=== PATIENT | male | born 1975 | race Caucasian/White ===

== ENCOUNTER 2018-11-24 16:55 | Inpatient (IN) | payer MEDICAID, OTHER ==
[~2018-11-24] VITALS: Ht 172.7 cm; Wt 74.9 kg
[~2018-11-24 16:55] MED LIST: HYDR-3150 PO; METF500T PO; TAMS-11 PO
--- NOTE | 2018-11-24 17:10 | NUR ---
FSBS IN TRIAGE READS "HI". SUMI GUZMÁN NOTIFIED. PT TO ROOM 39.
--- NOTE | 2018-11-24 17:10 | NUR ---
PT TO ROOM FROM LOBBY
--- NOTE | 2018-11-24 17:21 | NUR ---
43 Y/O MALE PRESENTS TO ED WITH C/O HIGH BLOOD SUGARS. PER SON "HE IS DIABETIC AND HAS HIGH BLOOD SUGARS. WE DON'T CHECK HIS BLOOD SUGAR AT HOME AND HE DOESN'T TAKE MEDICATIONS. HE'S BEEN FEELING SICK SINCE TUESDAY OR TUESDAY." PT BEING TAKEN TO IMAGING. Addendum: 11/24/18 at 1747 by JANAK PER SON "HE IS ALSO HERE BECAUSE HIS STUMP HURTS. HE HAD IT CUT OFF IN 2016"
[2018-11-24 17:32] LABS: BASOPHILS # (AUTO) 0.01 x10^3/uL (0-0.1); BASOPHILS % (AUTO) 0 % (0-1); EOSINOPHILS # (AUTO) 0.15 x10^3/uL (0-0.4); EOSINOPHILS % (AUTO) 1 % (1-7); LYMPHOCYTES # (AUTO) 1.32 x10^3/uL (1-3.4); LYMPHOCYTES % (AUTO) 12 % (22-44); MD NO; MEAN CORPUSCULAR HEMOGLOBIN 30.6 pg (27.5-34.5); MEAN CORPUSCULAR HGB CONC 33.8 g/dL (33.2-36.2); MEAN CORPUSCULAR VOLUME 90.7 fL (81-97); MEAN PLATELET VOLUME 9.3 fL (7.4-10.4); MONOCYTES # (AUTO) 0.74 x10^3/uL (0.2-0.8); MONOCYTES % (AUTO) 7 % (2-9); NEUTROPHILS # (AUTO) 8.47 x10^3/uL (1.8-6.8); NEUTROPHILS % (AUTO) 79 % (42-75); PLATELET COUNT 233 x10^3/uL (130-400); RED BLOOD COUNT 4.53 x10^6/uL (4.38-5.82)
--- NOTE | 2018-11-24 17:33 | NUR ---
PT BACK FROM IMAGING.
[2018-11-24 17:42] LABS: ALBUMIN 2.7 g/dL (3.4-5.0); ANION GAP 8 mmol/L (5-15); CALCIUM 8.9 mg/dL (8.5-10.1); CHLORIDE 95 mmol/L (98-107)
[2018-11-24 17:44] LABS: CREATININE 1.35 mg/dL (0.7-1.3)
--- NOTE | 2018-11-24 17:45 | NUR ---
PT SON STATES PT DENIES F/C, N/V/D, TRAUMA, SYNCOPE, CP, SOB. PT DOES STATE HE HAS ABDOMINAL PAIN. NO C/O DYSURIA OR ANY COMPLICATIONS WITH URINATION.
[2018-11-24] MEDS ORDERED: MORPHINE SULFATE 4 MG/ML, 1ML ONE (17:55)
[2018-11-24] MEDS ORDERED: MORPHINE SULFATE 4 MG/ML, 1ML IVPush ONE (18:00)
[2018-11-24] MEDS ORDERED: SODIUM CHLORIDE FLUSH 10ML SYR IVF ONE (18:00)
[2018-11-24] MEDS ORDERED: SODIUM CHLORIDE 0.9% 1,000ML IVBOLUS ONE ×2 (18:00→19:00)
[2018-11-24 18:14] LABS: ACETONE, SERUM Small (20mg/dL) mg/dL (Negative)
--- NOTE | 2018-11-24 18:49 | NUR ---
BEDSIDE REPORT TO CHAS CONDE.
--- NOTE | 2018-11-24 19:10 | NUR ---
2ND LITER NS INITIATED AT THIS TIME. PT SLEEPING COMFORTABLY. RR EVEN AND UNLABORED. NADN. NO IMMEDIATE NEEDS FROM PT OR FAMILY. CALL LIGHT WITHIN REACH.
[2018-11-24] MEDS ORDERED: INSULIN REGULAR 100 UNITS/ML, 3ML VIAL ONE (19:56)
[2018-11-24] MEDS ORDERED: INSULIN REGULAR 100 UNITS/ML, 3ML VIAL SQ-INSULIN ONE (20:00)
--- NOTE | 2018-11-24 20:18 | NUR ---
ALL RESULTS BACK. PT UP FOR RECHECK.
[2018-11-24] MEDS ORDERED: PROPOFOL 10 MG/ML, 20ML ONE (20:38)
[2018-11-24] MEDS ORDERED: FENTANYL PF 100 MCG/2ML ONE (20:38)
[2018-11-24] MEDS: INSULIN LISPRO 100 UNITS/ML, PEN SQ-INSULIN SCH (21:00)
[2018-11-24] MEDS ORDERED: BISACODYL 10 MG SUPP PR PRN (21:00)
[2018-11-24] MEDS ORDERED: ONDANSETRON 2MG/ML, 2ML IVPush PRN (21:00)
[2018-11-24] MEDS ORDERED: ACETAMINOPHEN 325 MG TABLET PO PRN (21:00)
[2018-11-24] MEDS ORDERED: DOCUSATE 100 MG CAPSULE PO PRN (21:00)
[2018-11-24] MEDS ORDERED: POLYETHYLENE GLYCOL 17 GM PACKET PO PRN (21:00)
[2018-11-24] MEDS ORDERED: PROMETHAZINE 25 MG/ML, 1ML IM PRN (21:00)
[2018-11-24] MEDS ORDERED: ONDANSETRON ODT 4 MG PO PRN (21:00)
[2018-11-24] MEDS ORDERED: LABETALOL 5MG/ML, 20ML IVPush PRN (21:00)
--- NOTE | 2018-11-24 21:03 | NUR ---
TASK RN: PT RESTING IN MELISSA [place] NOTED. PT REPORTS IMPROVEMENT IN PAIN WITH MEDICATIONS; DENIES NEED FOR ADDITIONAL PAIN MEDICATIONS. BP/SPO2 MONITOR IN PLACE. AWAITING BED ASSIGNMENT FOR TRANSPORT
[2018-11-24] MEDS: SODIUM CHLORIDE 0.9% 1,000 ML IV SCH (21:46)
[2018-11-24 21:56] LABS: HEMOGLOBIN A1C 15.7 % (4.2-6.3)
[2018-11-24 21:57] LABS: FREE T4 (FREE THYROXINE) 1.17 ng/dL (0.76-1.46); PSA SCREEN 0.24 ng/mL (0.00-4.00); THYROID STIMULATING HORMONE 1.16 mIU/L (0.358-3.740)
[2018-11-24 22:34] VITALS: BP 143/90
[2018-11-24] MEDS: HEPARIN 5,000 UNITS/ML, 1ML SQ SCH (22:57)
[2018-11-24] MEDS: INSULIN GLARGINE 100 UNITS/ML, PEN SQ-INSULIN SCH (22:58)
[2018-11-25 01:35] VITALS: BP 97/66
[2018-11-25] MEDS: SODIUM CHLORIDE 0.9% 1,000 ML IV SCH ×2 (03:23→12:47)
[2018-11-25 05:11] LABS: CHLORIDE 107 mmol/L (98-107)
[2018-11-25 05:17] LABS: ALANINE AMINOTRANSFERASE 21 U/L (12-78); ALBUMIN 2.2 g/dL (3.4-5.0); ALKALINE PHOSPHATASE 114 U/L (45-117); ANION GAP 5 mmol/L (5-15); BILIRUBIN,TOTAL 0.7 mg/dL (0.2-1.0); CALCIUM 8.2 mg/dL (8.5-10.1); CHOL/HDL RATIO 5.2; CHOLESTEROL, TOTAL 152 mg/dL (140-239); HDL CHOL % 19 % (26-37); HDL CHOLESTEROL (DIRECT) 29 mg/dL (40-60); LDL CHOLESTEROL,CALCULATED 95 mg/dL (54-169); LDL/HDL RATIO 3.3 (0.5-3.0); TOTAL PROTEIN 6.3 g/dL (6.4-8.2); TRIGLYCERIDES 139 mg/dL (50-200); VLDL CHOLESTEROL 28 mg/dL (0-25)
[2018-11-25 06:40] LABS: BASOPHILS # (AUTO) 0.05 x10^3/uL (0-0.1); BASOPHILS % (AUTO) 0 % (0-1); EOSINOPHILS # (AUTO) 0.06 x10^3/uL (0-0.4); EOSINOPHILS % (AUTO) 1 % (1-7); LYMPHOCYTES % (AUTO) 19 % (22-44); MD SCAN; MEAN CORPUSCULAR HEMOGLOBIN 29.7 pg (27.5-34.5); MEAN CORPUSCULAR HGB CONC 33.1 g/dL (33.2-36.2); MEAN CORPUSCULAR VOLUME 89.7 fL (81-97); MEAN PLATELET VOLUME 9.6 fL (7.4-10.4); MONOCYTES # (AUTO) 1.19 x10^3/uL (0.2-0.8); MONOCYTES % (AUTO) 10 % (2-9); NEUTROPHILS # (AUTO) 8.29 x10^3/uL (1.8-6.8); NEUTROPHILS % (AUTO) 70 % (42-75); PLATELET COUNT 224 x10^3/uL (130-400); RED BLOOD COUNT 3.96 x10^6/uL (4.38-5.82)
[2018-11-25 07:23] VITALS: BP 106/65
[2018-11-25] MEDS: INSULIN LISPRO 100 UNITS/ML, PEN SQ-INSULIN SCH ×4 (07:50→19:58)
[2018-11-25] MEDS: HEPARIN 5,000 UNITS/ML, 1ML SQ SCH ×3 (07:50→23:00)
[2018-11-25] MEDS ORDERED: VANCOMYCIN PMX 1GM/200ML 200 ML IV ONE (10:00)
[2018-11-25] MEDS ORDERED: VANCOMYCIN PER PHARMACY MC PRN (10:00)
[2018-11-25] MEDS ORDERED: PHARMACOKINETIC CONSULTATION MC ONE (10:30)
[2018-11-25] MEDS ORDERED: PHARMACOKINETIC MONITORING MC PRN (10:30)
[2018-11-25] MEDS ORDERED: VANCOMYCIN 1,400 MG in SODIUM CHLORIDE 0.9% 250 ML IV SCH (11:00)
[2018-11-25] MEDS ORDERED: GADOBUTROL 7.5 MMOL/7.5 ML PFS ONE (12:26)
[2018-11-25 12:43] VITALS: BP 121/83
[2018-11-25] MEDS: PIPERACILLIN/TAZO/PMX 3.375GM 50 ML IV SCH ×2 (12:47→18:27)
[2018-11-25] MEDS: LACTOBACILLUS CHEW TABLET PO SCH ×2 (15:39→19:53)
[2018-11-25 18:45] VITALS: BP 94/63
[2018-11-25] MEDS: OXYcodone IR 5MG TABLET PO PRN (19:53)
[2018-11-25] MEDS: INSULIN GLARGINE 100 UNITS/ML, PEN SQ-INSULIN SCH (19:58)
[2018-11-26] MEDS: PIPERACILLIN/TAZO/PMX 3.375GM 50 ML IV SCH ×4 (00:52→20:52)
[2018-11-26 00:57] VITALS: BP 121/64
[2018-11-26] MEDS: VANCOMYCIN 1,400 MG in SODIUM CHLORIDE 0.9% 250 ML IV SCH ×2 (01:54→14:42)
[2018-11-26 07:22] VITALS: BP 94/62
[2018-11-26] MEDS: LACTOBACILLUS CHEW TABLET PO SCH ×3 (09:16→21:06)
[2018-11-26] MEDS: OXYcodone IR 5MG TABLET PO PRN (09:16)
[2018-11-26 09:17] LABS: HCT (SEDRATE) 31.4 % (39.2-51.8)
[2018-11-26] MEDS: INSULIN LISPRO 100 UNITS/ML, PEN SQ-INSULIN SCH ×4 (09:22→21:05)
[2018-11-26] MEDS: morphine SULFATE 10 MG/ML, 1ML IVPush PRN (12:00)
[2018-11-26 12:53] VITALS: BP 91/60
[2018-11-26 13:16] VITALS: BP 100/66
[2018-11-26 14:52] VITALS: BP 106/71
[2018-11-26] MEDS ORDERED: MORPHINE SULFATE 4 MG/ML, 1ML ONE (17:16)
[2018-11-26] MEDS ORDERED: morphine SULFATE 10 MG/ML, 1ML IVPush ONE (17:30)
[2018-11-26] MEDS ORDERED: FENTANYL PF 250 MCG/5ML ONE (17:37)
[2018-11-26] MEDS ORDERED: OXYcodone 5 MG/5 ML ORAL.SOL UDC PO PRN (18:00)
[2018-11-26] MEDS ORDERED: LABETALOL 5 MG/ML SYRINGE IV PRN (18:00)
[2018-11-26] MEDS ORDERED: ONDANSETRON 2MG/ML, 2ML IV PRN (18:00)
[2018-11-26] MEDS ORDERED: ACETAMINOPHEN 325 MG TABLET PO PRN (18:00)
[2018-11-26] MEDS ORDERED: PROMETHAZINE 25 MG/ML, 1ML IV PRN (18:00)
[2018-11-26] MEDS ORDERED: hydrALAzine 20 MG/ML, 1ML IV PRN (18:00)
[2018-11-26] MEDS ORDERED: ONDANSETRON 2MG/ML, 2ML ONE (18:44)
[2018-11-26] MEDS ORDERED: PROPOFOL 10 MG/ML, 20ML ONE (18:45)
[2018-11-26] MEDS ORDERED: METOCLOPRAMIDE 5 MG/ML, 2ML ONE (18:45)
[2018-11-26] MEDS ORDERED: FENTANYL PF 100 MCG/2ML ONE (19:32)
[2018-11-26] MEDS ORDERED: HYDROmorphone 1 MG/ML, 1ML AMP ONE (19:33)
[2018-11-26] MEDS: HYDROmorphone 2 MG/ML, 1ML IVPush PRN ×3 (19:37→20:05)
[2018-11-26] MEDS: FENTANYL PF 100 MCG/2ML IV PRN ×3 (19:44→19:56)
[2018-11-26 20:45] VITALS: BP 123/83
[2018-11-26] MEDS: INSULIN GLARGINE 100 UNITS/ML, PEN SQ-INSULIN SCH (21:06)
[2018-11-27 01:08] VITALS: BP 107/72
[2018-11-27] MEDS: VANCOMYCIN 1,400 MG in SODIUM CHLORIDE 0.9% 250 ML IV SCH (01:53)
[2018-11-27] MEDS: PIPERACILLIN/TAZO/PMX 3.375GM 50 ML IV SCH ×4 (03:23→22:48)
[2018-11-27 06:52] VITALS: BP 118/78
[2018-11-27] MEDS: LACTOBACILLUS CHEW TABLET PO SCH ×3 (09:49→20:19)
[2018-11-27] MEDS: INSULIN LISPRO 100 UNITS/ML, PEN SQ-INSULIN SCH ×4 (09:50→20:19)
[2018-11-27 12:27] VITALS: BP 126/84
[2018-11-27] MEDS ORDERED: PNEUMOC 13-VALENT VACC, 0.5 ML IM-VACC ONE (14:30)
[2018-11-27] MEDS ORDERED: DIPH,PERTUSS(ACELL),TET VAC/PF NC IM-VACC ONE (14:30)
[2018-11-27] MEDS: DAPTOMYCIN 300 MG in SODIUM CHLORIDE 0.9% 100 ML IV SCH (15:39)
[2018-11-27 19:20] VITALS: BP 124/86
[2018-11-27] MEDS: INSULIN GLARGINE 100 UNITS/ML, PEN SQ-INSULIN SCH (20:20)
[2018-11-27 22:09] LABS: CLOSTRIDIUM DIFFICILE ANTIGEN NEGATIVE; CLOSTRIDIUM DIFFICILE TOXIN NEGATIVE (Negative)
[2018-11-28 03:36] VITALS: BP 131/89
[2018-11-28] MEDS: PIPERACILLIN/TAZO/PMX 3.375GM 50 ML IV SCH ×4 (05:58→23:02)
[2018-11-28 06:52] VITALS: BP 115/70
[2018-11-28] MEDS: LACTOBACILLUS CHEW TABLET PO SCH ×3 (07:52→18:17)
[2018-11-28] MEDS: INSULIN LISPRO 100 UNITS/ML, PEN SQ-INSULIN SCH ×4 (07:53→21:25)
[2018-11-28 12:19] VITALS: BP 157/98
[2018-11-28] MEDS: morphine SULFATE 10 MG/ML, 1ML IVPush PRN (14:27)
[2018-11-28] MEDS: DAPTOMYCIN 300 MG in SODIUM CHLORIDE 0.9% 100 ML IV SCH (16:04)
[2018-11-28] MEDS: INSULIN GLARGINE 100 UNITS/ML, PEN SQ-INSULIN SCH (21:25)
[2018-11-28 21:54] VITALS: BP 142/89
[2018-11-29 01:19] VITALS: BP 133/90
[2018-11-29] MEDS: PIPERACILLIN/TAZO/PMX 3.375GM 50 ML IV SCH ×4 (04:34→23:02)
[2018-11-29 07:00] VITALS: BP 153/105
[2018-11-29] MEDS: INSULIN LISPRO 100 UNITS/ML, PEN SQ-INSULIN SCH ×4 (07:20→21:01)
[2018-11-29] MEDS: LACTOBACILLUS CHEW TABLET PO SCH ×3 (08:46→20:55)
[2018-11-29 14:32] VITALS: BP 181/126
[2018-11-29] MEDS: hydrALAzine 20 MG/ML, 1ML IVPush PRN (15:05)
[2018-11-29] MEDS: DAPTOMYCIN 300 MG in SODIUM CHLORIDE 0.9% 100 ML IV SCH (15:38)
[2018-11-29 18:34] VITALS: BP 112/77
[2018-11-29] MEDS: INSULIN GLARGINE 100 UNITS/ML, PEN SQ-INSULIN SCH (21:01)
[2018-11-30] VITALS (7 sets, daily range): BP systolic 127–188; BP diastolic 70–104
[2018-11-30] MEDS: PIPERACILLIN/TAZO/PMX 3.375GM 50 ML IV SCH ×2 (04:23→11:34)
[2018-11-30] MEDS: INSULIN LISPRO 100 UNITS/ML, PEN SQ-INSULIN SCH ×4 (07:00→19:36)
[2018-11-30] MEDS: LACTOBACILLUS CHEW TABLET PO SCH ×3 (08:32→19:42)
[2018-11-30] MEDS ORDERED: MIDAZOLAM 1 MG/ML, 2ML ONE (15:25)
[2018-11-30] MEDS ORDERED: FENTANYL PF 100 MCG/2ML ONE (15:25)
[2018-11-30] MEDS ORDERED: PROPOFOL 10 MG/ML, 20ML ONE (15:27)
[2018-11-30] MEDS ORDERED: LIDOCAINE-MPF 2% ,5ML ONE (15:27)
[2018-11-30] MEDS ORDERED: hydrALAzine 20 MG/ML, 1ML IV PRN (16:00)
[2018-11-30] MEDS ORDERED: FENTANYL PF 100 MCG/2ML IV PRN (16:00)
[2018-11-30] MEDS ORDERED: HALOPERIDOL 5 MG/ML IV PRN (16:00)
[2018-11-30] MEDS ORDERED: HYDROmorphone 2 MG/ML, 1ML IVPush PRN (16:00)
[2018-11-30] MEDS ORDERED: MEPERIDINE/PF 25MG/0.5ML IVPush PRN (16:00)
[2018-11-30] MEDS ORDERED: OXYcodone 5 MG/5 ML ORAL.SOL UDC PO PRN (16:00)
[2018-11-30] MEDS: PIPERACILLIN/TAZO/PMX 4.5GM 100 ML IV SCH (18:06)
[2018-11-30] MEDS: INSULIN GLARGINE 100 UNITS/ML, PEN SQ-INSULIN SCH (19:36)
[2018-11-30] MEDS: hydrALAzine 20 MG/ML, 1ML IVPush PRN (20:00)
[2018-11-30] MEDS ORDERED: LABETALOL 5MG/ML, 20ML IVPush PRN (22:30)
[2018-12-01] MEDS: PIPERACILLIN/TAZO/PMX 4.5GM 100 ML IV SCH ×3 (00:05→16:21)
[2018-12-01 01:29] VITALS: BP 148/93
[2018-12-01 06:43] VITALS: BP_SYST 160; BP_SYST 166; BP_DIAS 108
[2018-12-01 07:01] LABS: BASOPHILS # (AUTO) 0.03 x10^3/uL (0-0.1); BASOPHILS % (AUTO) 1 % (0-1); EOSINOPHILS # (AUTO) 0.37 x10^3/uL (0-0.4); EOSINOPHILS % (AUTO) 6 % (1-7); LYMPHOCYTES # (AUTO) 2.07 x10^3/uL (1-3.4); LYMPHOCYTES % (AUTO) 32 % (22-44); MD NO; MEAN CORPUSCULAR HEMOGLOBIN 29.4 pg (27.5-34.5); MEAN CORPUSCULAR HGB CONC 32.8 g/dL (33.2-36.2); MEAN CORPUSCULAR VOLUME 89.7 fL (81-97); MEAN PLATELET VOLUME 6.9 fL (7.4-10.4); MONOCYTES # (AUTO) 0.62 x10^3/uL (0.2-0.8); MONOCYTES % (AUTO) 10 % (2-9); NEUTROPHILS # (AUTO) 3.46 x10^3/uL (1.8-6.8); NEUTROPHILS % (AUTO) 53 % (42-75); PLATELET COUNT 506 x10^3/uL (130-400); RED BLOOD COUNT 3.88 x10^6/uL (4.38-5.82); RED CELL DISTRIBUTION WIDTH 14.5 % (9.4-14.8)
[2018-12-01 07:03] LABS: ANION GAP 6 mmol/L (5-15); CALCIUM 8.4 mg/dL (8.5-10.1); CHLORIDE 112 mmol/L (98-107); CREATININE 0.85 mg/dL (0.7-1.3)
[2018-12-01] MEDS: LABETALOL 5 MG/ML SYRINGE IVPush PRN (07:21)
[2018-12-01] MEDS ORDERED: MAGNESIUM SULFATE PMX 2GM/50ML 50 ML IV ONE (07:30)
[2018-12-01] MEDS: INSULIN LISPRO 100 UNITS/ML, PEN SQ-INSULIN SCH ×4 (07:36→21:36)
[2018-12-01] MEDS: LACTOBACILLUS CHEW TABLET PO SCH ×3 (07:37→21:24)
[2018-12-01 13:59] VITALS: BP 130/86
[2018-12-01 18:47] VITALS: BP 137/90
[2018-12-01] MEDS: INSULIN GLARGINE 100 UNITS/ML, PEN SQ-INSULIN SCH (21:36)
[2018-12-02] VITALS (8 sets, daily range): BP systolic 130–161; BP diastolic 84–104
[2018-12-02] MEDS: PIPERACILLIN/TAZO/PMX 4.5GM 100 ML IV SCH ×3 (00:33→16:22)
[2018-12-02 04:29] LABS: CHLORIDE 113 mmol/L (98-107)
[2018-12-02 04:30] LABS: ANION GAP 4 mmol/L (5-15); CALCIUM 8.4 mg/dL (8.5-10.1); CREATININE 1.15 mg/dL (0.7-1.3)
[2018-12-02] MEDS: INSULIN LISPRO 100 UNITS/ML, PEN SQ-INSULIN SCH ×4 (07:27→20:53)
[2018-12-02] MEDS: LACTOBACILLUS CHEW TABLET PO SCH ×3 (08:41→20:47)
[2018-12-02] MEDS: hydrALAzine 20 MG/ML, 1ML IVPush PRN (08:42)
[2018-12-02] MEDS: INSULIN GLARGINE 100 UNITS/ML, PEN SQ-INSULIN SCH ×2 (08:44→20:52)
[2018-12-02] MEDS ORDERED: INSULIN GLARGINE 100 UNITS/ML, PEN SQ-INSULIN SCH (09:00)
[2018-12-03 00:08] VITALS: BP 150/98
[2018-12-03] MEDS: PIPERACILLIN/TAZO/PMX 4.5GM 100 ML IV SCH ×3 (00:18→16:31)
[2018-12-03 06:09] VITALS: BP 156/94
[2018-12-03 06:41] VITALS: BP 152/104
[2018-12-03] MEDS: INSULIN LISPRO 100 UNITS/ML, PEN SQ-INSULIN SCH ×4 (07:30→21:25)
[2018-12-03] MEDS: LACTOBACILLUS CHEW TABLET PO SCH ×3 (07:33→21:26)
[2018-12-03] MEDS: INSULIN GLARGINE 100 UNITS/ML, PEN SQ-INSULIN SCH ×2 (07:34→21:26)
[2018-12-03 07:49] VITALS: BP 144/100
[2018-12-03] MEDS: LABETALOL 5 MG/ML SYRINGE IVPush PRN (08:50)
[2018-12-03] MEDS: hydrALAzine 20 MG/ML, 1ML IVPush PRN (10:01)
[2018-12-03 12:09] VITALS: BP 144/90
[2018-12-03 19:45] VITALS: BP 106/70
[2018-12-04] MEDS: PIPERACILLIN/TAZO/PMX 4.5GM 100 ML IV SCH ×4 (00:11→23:52)
[2018-12-04 01:02] VITALS: BP 106/65
[2018-12-04 04:40] LABS: BASOPHILS # (AUTO) 0.04 x10^3/uL (0-0.1); BASOPHILS % (AUTO) 1 % (0-1); EOSINOPHILS # (AUTO) 0.48 x10^3/uL (0-0.4); EOSINOPHILS % (AUTO) 6 % (1-7); LYMPHOCYTES # (AUTO) 2.99 x10^3/uL (1-3.4); LYMPHOCYTES % (AUTO) 38 % (22-44); MD NO; MEAN CORPUSCULAR HEMOGLOBIN 29.8 pg (27.5-34.5); MEAN CORPUSCULAR HGB CONC 32.9 g/dL (33.2-36.2); MEAN CORPUSCULAR VOLUME 90.4 fL (81-97); MONOCYTES # (AUTO) 0.51 x10^3/uL (0.2-0.8); MONOCYTES % (AUTO) 7 % (2-9); NEUTROPHILS % (AUTO) 49 % (42-75); PLATELET COUNT 551 x10^3/uL (130-400); RED BLOOD COUNT 3.92 x10^6/uL (4.38-5.82); RED CELL DISTRIBUTION WIDTH 14.7 % (9.4-14.8)
[2018-12-04 04:49] LABS: ALANINE AMINOTRANSFERASE 22 U/L (12-78); ANION GAP 5 mmol/L (5-15); C-REACTIVE PROTEIN, QUANT 0.69 mg/dL (0.02-0.49); CALCIUM 7.9 mg/dL (8.5-10.1); CHLORIDE 109 mmol/L (98-107); CREATININE 1.06 mg/dL (0.7-1.3)
[2018-12-04 04:51] LABS: ALKALINE PHOSPHATASE 123 U/L (45-117); BILIRUBIN,TOTAL 0.2 mg/dL (0.2-1.0); TOTAL PROTEIN 6.2 g/dL (6.4-8.2)
[2018-12-04 06:34] LABS: HCT (SEDRATE) 35.4 % (39.2-51.8)
[2018-12-04 06:58] VITALS: BP 155/93
[2018-12-04] MEDS: INSULIN LISPRO 100 UNITS/ML, PEN SQ-INSULIN SCH ×4 (07:30→21:00)
[2018-12-04] MEDS ORDERED: MAGNESIUM SULFATE PMX 2GM/50ML 50 ML IV ONE (07:30)
[2018-12-04] MEDS: LACTOBACILLUS CHEW TABLET PO SCH ×3 (08:21→22:19)
[2018-12-04] MEDS: INSULIN GLARGINE 100 UNITS/ML, PEN SQ-INSULIN SCH ×2 (08:21→22:19)
[2018-12-04 13:18] VITALS: BP 112/75
[2018-12-04 19:31] VITALS: BP 120/80
[2018-12-05 03:09] VITALS: BP 141/78
[2018-12-05 06:56] VITALS: BP 130/87
[2018-12-05] MEDS: LACTOBACILLUS CHEW TABLET PO SCH ×3 (09:10→20:08)
[2018-12-05] MEDS: PIPERACILLIN/TAZO/PMX 4.5GM 100 ML IV SCH ×3 (09:11→23:25)
[2018-12-05] MEDS: INSULIN LISPRO 100 UNITS/ML, PEN SQ-INSULIN SCH ×4 (09:11→20:10)
[2018-12-05] MEDS: INSULIN GLARGINE 100 UNITS/ML, PEN SQ-INSULIN SCH ×2 (09:12→20:21)
[2018-12-05 12:21] VITALS: BP 150/97
[2018-12-05 19:00] VITALS: BP 117/80
[2018-12-06 00:17] VITALS: BP 161/102
[2018-12-06 01:32] VITALS: BP 128/89
[2018-12-06 07:07] VITALS: BP 126/86
[2018-12-06] MEDS: LACTOBACILLUS CHEW TABLET PO SCH ×3 (07:52→20:09)
[2018-12-06] MEDS: PIPERACILLIN/TAZO/PMX 4.5GM 100 ML IV SCH ×2 (07:52→16:24)
[2018-12-06] MEDS: INSULIN LISPRO 100 UNITS/ML, PEN SQ-INSULIN SCH ×4 (07:56→20:13)
[2018-12-06] MEDS: INSULIN GLARGINE 100 UNITS/ML, PEN SQ-INSULIN SCH ×2 (07:59→20:14)
[2018-12-06 12:59] VITALS: BP 120/82
[2018-12-06 18:57] VITALS: BP 150/102
[2018-12-06] MEDS: hydrALAzine 20 MG/ML, 1ML IVPush PRN (20:09)
[2018-12-07] VITALS: BP 128/83
[2018-12-07] MEDS: PIPERACILLIN/TAZO/PMX 4.5GM 100 ML IV SCH ×4 (00:07→23:26)
[2018-12-07 06:39] VITALS: BP 113/78
[2018-12-07] MEDS: LACTOBACILLUS CHEW TABLET PO SCH ×3 (08:23→19:26)
[2018-12-07] MEDS: INSULIN GLARGINE 100 UNITS/ML, PEN SQ-INSULIN SCH ×2 (08:24→19:27)
[2018-12-07] MEDS: INSULIN LISPRO 100 UNITS/ML, PEN SQ-INSULIN SCH ×4 (10:25→19:27)
[2018-12-07 13:50] VITALS: BP 93/61
[2018-12-07 18:39] VITALS: BP 90/57
[2018-12-08 01:19] VITALS: BP 127/86
[2018-12-08 06:55] VITALS: BP 125/85
[2018-12-08] MEDS: LACTOBACILLUS CHEW TABLET PO SCH ×3 (07:49→19:32)
[2018-12-08] MEDS: INSULIN LISPRO 100 UNITS/ML, PEN SQ-INSULIN SCH ×4 (07:50→19:32)
[2018-12-08] MEDS: PIPERACILLIN/TAZO/PMX 4.5GM 100 ML IV SCH ×3 (07:50→23:41)
[2018-12-08] MEDS: INSULIN GLARGINE 100 UNITS/ML, PEN SQ-INSULIN SCH ×2 (09:24→19:32)
[2018-12-08 14:13] VITALS: BP 130/92
[2018-12-08 18:33] VITALS: BP 109/86
[2018-12-09 01:38] VITALS: BP 119/84
[2018-12-09] MEDS: INSULIN LISPRO 100 UNITS/ML, PEN SQ-INSULIN SCH ×4 (07:00→20:44)
[2018-12-09 07:15] VITALS: BP 129/83
[2018-12-09] MEDS: INSULIN GLARGINE 100 UNITS/ML, PEN SQ-INSULIN SCH ×2 (08:19→20:43)
[2018-12-09] MEDS: LACTOBACILLUS CHEW TABLET PO SCH ×3 (08:19→20:43)
[2018-12-09] MEDS: PIPERACILLIN/TAZO/PMX 4.5GM 100 ML IV SCH ×3 (08:19→23:40)
[2018-12-09 13:25] VITALS: BP 109/76
[2018-12-09 19:27] VITALS: BP 120/83
[2018-12-10 00:19] VITALS: BP 111/77
[2018-12-10 07:20] VITALS: BP 120/82
[2018-12-10] MEDS: LACTOBACILLUS CHEW TABLET PO SCH ×3 (07:45→22:02)
[2018-12-10] MEDS: INSULIN GLARGINE 100 UNITS/ML, PEN SQ-INSULIN SCH ×2 (07:45→22:03)
[2018-12-10] MEDS: PIPERACILLIN/TAZO/PMX 4.5GM 100 ML IV SCH ×2 (07:45→16:22)
[2018-12-10] MEDS: INSULIN LISPRO 100 UNITS/ML, PEN SQ-INSULIN SCH ×4 (07:46→22:03)
[2018-12-10 13:21] VITALS: BP 117/78
[2018-12-10 19:47] VITALS: BP 106/72
[2018-12-11 00:22] VITALS: BP 125/86
[2018-12-11] MEDS: PIPERACILLIN/TAZO/PMX 4.5GM 100 ML IV SCH ×3 (01:00→16:53)
[2018-12-11 04:51] LABS: BASOPHILS # (AUTO) 0.09 x10^3/uL (0-0.1); BASOPHILS % (AUTO) 1 % (0-1); EOSINOPHILS # (AUTO) 0.44 x10^3/uL (0-0.4); EOSINOPHILS % (AUTO) 7 % (1-7); HCT (SEDRATE) 37.4 % (39.2-51.8); LYMPHOCYTES % (AUTO) 50 % (22-44); MD NO; MEAN CORPUSCULAR HEMOGLOBIN 30.5 pg (27.5-34.5); MEAN CORPUSCULAR HGB CONC 33.3 g/dL (33.2-36.2); MEAN CORPUSCULAR VOLUME 91.6 fL (81-97); MEAN PLATELET VOLUME 7.7 fL (7.4-10.4); MONOCYTES # (AUTO) 0.32 x10^3/uL (0.2-0.8); MONOCYTES % (AUTO) 5 % (2-9); NEUTROPHILS % (AUTO) 38 % (42-75); PLATELET COUNT 430 x10^3/uL (130-400); RED BLOOD COUNT 4.11 x10^6/uL (4.38-5.82); RED CELL DISTRIBUTION WIDTH 15.1 % (9.4-14.8)
[2018-12-11 05:03] LABS: CHLORIDE 113 mmol/L (98-107)
[2018-12-11 05:11] LABS: ALANINE AMINOTRANSFERASE 50 U/L (12-78); ALBUMIN 2.7 g/dL (3.4-5.0); ALKALINE PHOSPHATASE 121 U/L (45-117); ANION GAP 4 mmol/L (5-15); BILIRUBIN,TOTAL 0.4 mg/dL (0.2-1.0); C-REACTIVE PROTEIN, QUANT 0.16 mg/dL (0.02-0.49); CALCIUM 8.8 mg/dL (8.5-10.1); TOTAL PROTEIN 7.5 g/dL (6.4-8.2)
[2018-12-11 07:02] VITALS: BP 112/80
[2018-12-11] MEDS: INSULIN LISPRO 100 UNITS/ML, PEN SQ-INSULIN SCH ×4 (07:06→21:36)
[2018-12-11] MEDS: LACTOBACILLUS CHEW TABLET PO SCH ×3 (08:52→21:35)
[2018-12-11] MEDS: INSULIN GLARGINE 100 UNITS/ML, PEN SQ-INSULIN SCH ×2 (08:53→21:36)
[2018-12-11] MEDS ORDERED: SODIUM CHLORIDE 0.9% 1,000 ML IV SCH (10:00)
[2018-12-11] MEDS ORDERED: SODIUM CHLORIDE 0.45% 1,000 ML IV SCH (10:00)
[2018-12-11 13:52] VITALS: BP 124/84
[2018-12-11 19:18] VITALS: BP 99/70
[2018-12-12] MEDS: PIPERACILLIN/TAZO/PMX 4.5GM 100 ML IV SCH ×3 (00:13→16:53)
[2018-12-12 04:37] LABS: ALBUMIN 2.6 g/dL (3.4-5.0); ANION GAP 4 mmol/L (5-15); CALCIUM 8.3 mg/dL (8.5-10.1); CHLORIDE 113 mmol/L (98-107); CREATININE 1.19 mg/dL (0.7-1.3)
[2018-12-12 04:52] VITALS: BP 110/76
[2018-12-12 06:48] VITALS: BP 115/80
[2018-12-12] MEDS: INSULIN LISPRO 100 UNITS/ML, PEN SQ-INSULIN SCH ×4 (07:07→20:20)
[2018-12-12] MEDS: LACTOBACILLUS CHEW TABLET PO SCH ×3 (08:50→20:27)
[2018-12-12] MEDS: INSULIN GLARGINE 100 UNITS/ML, PEN SQ-INSULIN SCH ×2 (08:50→20:20)
[2018-12-12 13:07] VITALS: BP 112/76
[2018-12-12 19:53] VITALS: BP 127/88
[2018-12-13] MEDS: PIPERACILLIN/TAZO/PMX 4.5GM 100 ML IV SCH ×3 (00:17→17:16)
[2018-12-13 00:41] VITALS: BP 97/62
[2018-12-13 06:30] VITALS: BP 111/77
[2018-12-13] MEDS: INSULIN LISPRO 100 UNITS/ML, PEN SQ-INSULIN SCH ×4 (07:24→20:53)
[2018-12-13] MEDS: LACTOBACILLUS CHEW TABLET PO SCH ×3 (08:32→20:52)
[2018-12-13] MEDS: INSULIN GLARGINE 100 UNITS/ML, PEN SQ-INSULIN SCH ×2 (08:32→20:53)
[2018-12-13 14:02] VITALS: BP 113/80
[2018-12-13 19:12] VITALS: BP 106/79
[2018-12-14] MEDS: PIPERACILLIN/TAZO/PMX 4.5GM 100 ML IV SCH ×3 (00:07→16:35)
[2018-12-14 00:47] VITALS: BP 119/80
[2018-12-14 07:29] VITALS: BP 130/86
[2018-12-14] MEDS: LACTOBACILLUS CHEW TABLET PO SCH ×3 (07:56→19:44)
[2018-12-14] MEDS: INSULIN GLARGINE 100 UNITS/ML, PEN SQ-INSULIN SCH ×2 (07:57→19:45)
[2018-12-14] MEDS: INSULIN LISPRO 100 UNITS/ML, PEN SQ-INSULIN SCH ×4 (07:57→19:41)
[2018-12-14] MEDS: TAMSULOSIN 0.4 MG CAP.ER.24H PO SCH (11:55)
[2018-12-14 11:56] VITALS: BP 119/85
[2018-12-14 19:18] VITALS: BP 106/72
[2018-12-15] MEDS: PIPERACILLIN/TAZO/PMX 4.5GM 100 ML IV SCH ×4 (00:17→23:58)
[2018-12-15 00:54] VITALS: BP 124/84
[2018-12-15 06:55] VITALS: BP 146/96
[2018-12-15] MEDS: INSULIN GLARGINE 100 UNITS/ML, PEN SQ-INSULIN SCH ×2 (07:53→21:14)
[2018-12-15] MEDS: INSULIN LISPRO 100 UNITS/ML, PEN SQ-INSULIN SCH ×4 (07:54→21:15)
[2018-12-15] MEDS: LACTOBACILLUS CHEW TABLET PO SCH ×3 (07:54→21:15)
[2018-12-15] MEDS: TAMSULOSIN 0.4 MG CAP.ER.24H PO SCH (07:54)
[2018-12-15 13:07] VITALS: BP 129/85
[2018-12-15 18:53] VITALS: BP 112/77
[2018-12-16 01:00] VITALS: BP 115/76
[2018-12-16] MEDS: INSULIN LISPRO 100 UNITS/ML, PEN SQ-INSULIN SCH ×4 (07:00→21:59)
[2018-12-16 07:27] VITALS: BP 140/97
[2018-12-16] MEDS: PIPERACILLIN/TAZO/PMX 4.5GM 100 ML IV SCH ×2 (07:49→16:53)
[2018-12-16] MEDS: LACTOBACILLUS CHEW TABLET PO SCH ×3 (10:37→21:58)
[2018-12-16] MEDS: TAMSULOSIN 0.4 MG CAP.ER.24H PO SCH (10:37)
[2018-12-16] MEDS: INSULIN GLARGINE 100 UNITS/ML, PEN SQ-INSULIN SCH ×2 (10:48→21:58)
[2018-12-16 12:36] VITALS: BP 96/63
[2018-12-16 19:43] VITALS: BP 95/61
[2018-12-17] MEDS: PIPERACILLIN/TAZO/PMX 4.5GM 100 ML IV SCH ×3 (00:16→16:08)
[2018-12-17 01:41] VITALS: BP 125/65
[2018-12-17 06:59] VITALS: BP 125/88
[2018-12-17] MEDS: INSULIN LISPRO 100 UNITS/ML, PEN SQ-INSULIN SCH ×4 (07:51→21:54)
[2018-12-17] MEDS: LACTOBACILLUS CHEW TABLET PO SCH ×3 (09:33→21:21)
[2018-12-17] MEDS: TAMSULOSIN 0.4 MG CAP.ER.24H PO SCH (09:33)
[2018-12-17] MEDS: INSULIN GLARGINE 100 UNITS/ML, PEN SQ-INSULIN SCH ×2 (09:34→21:54)
[2018-12-17 12:37] VITALS: BP_SYST 68; BP_SYST 73; BP_DIAS 45; BP_DIAS 47
[2018-12-17 12:45] VITALS: BP 90/50
[2018-12-17 15:19] VITALS: BP 98/58
[2018-12-17] MEDS: metFORMIN 500 MG TABLET PO SCH (16:14)
[2018-12-17 19:03] VITALS: BP 117/82
[2018-12-18] MEDS: PIPERACILLIN/TAZO/PMX 4.5GM 100 ML IV SCH ×4 (00:04→23:37)
[2018-12-18 00:55] VITALS: BP 114/78
[2018-12-18 05:40] LABS: BASOPHILS # (AUTO) 0.06 x10^3/uL (0-0.1); BASOPHILS % (AUTO) 1 % (0-1); EOSINOPHILS # (AUTO) 0.48 x10^3/uL (0-0.4); EOSINOPHILS % (AUTO) 9 % (1-7); LYMPHOCYTES # (AUTO) 2.59 x10^3/uL (1-3.4); LYMPHOCYTES % (AUTO) 49 % (22-44); MD NO; MEAN CORPUSCULAR HEMOGLOBIN 30.2 pg (27.5-34.5); MEAN CORPUSCULAR VOLUME 91.4 fL (81-97); MEAN PLATELET VOLUME 8.9 fL (7.4-10.4); MONOCYTES # (AUTO) 0.31 x10^3/uL (0.2-0.8); MONOCYTES % (AUTO) 6 % (2-9); NEUTROPHILS # (AUTO) 1.81 x10^3/uL (1.8-6.8); NEUTROPHILS % (AUTO) 34 % (42-75); PLATELET COUNT 200 x10^3/uL (130-400); RED BLOOD COUNT 4.04 x10^6/uL (4.38-5.82); RED CELL DISTRIBUTION WIDTH 15.9 % (9.4-14.8)
[2018-12-18 05:46] LABS: CHLORIDE 119 mmol/L (98-107); HCT (SEDRATE) 36.9 % (39.2-51.8)
[2018-12-18 05:51] LABS: ALANINE AMINOTRANSFERASE 48 U/L (12-78); ALBUMIN 2.8 g/dL (3.4-5.0); ALKALINE PHOSPHATASE 106 U/L (45-117); ANION GAP 6 mmol/L (5-15); BILIRUBIN,TOTAL 0.3 mg/dL (0.2-1.0); C-REACTIVE PROTEIN, QUANT 0.07 mg/dL (0.02-0.49); CALCIUM 8.3 mg/dL (8.5-10.1); CREATININE 1.35 mg/dL (0.7-1.3); TOTAL PROTEIN 6.9 g/dL (6.4-8.2)
[2018-12-18] MEDS: INSULIN LISPRO 100 UNITS/ML, PEN SQ-INSULIN SCH ×4 (07:00→21:00)
[2018-12-18 07:12] VITALS: BP 150/96
[2018-12-18] MEDS: LACTOBACILLUS CHEW TABLET PO SCH ×3 (09:35→21:52)
[2018-12-18] MEDS: metFORMIN 500 MG TABLET PO SCH ×2 (09:35→16:26)
[2018-12-18] MEDS: TAMSULOSIN 0.4 MG CAP.ER.24H PO SCH (09:36)
[2018-12-18] MEDS: INSULIN GLARGINE 100 UNITS/ML, PEN SQ-INSULIN SCH ×2 (09:51→21:55)
[2018-12-18 12:44] VITALS: BP 145/63
[2018-12-18] MEDS ORDERED: INSU100I13 SQ-INSULIN (13:42)
[2018-12-18] MEDS ORDERED: METF500T PO (13:43)
[2018-12-18] MEDS ORDERED: TAMS-11 PO (13:43)
[2018-12-18 19:14] VITALS: BP 105/72
[2018-12-19 00:14] VITALS: BP 138/88
[2018-12-19 06:43] VITALS: BP 136/62
[2018-12-19] MEDS: INSULIN LISPRO 100 UNITS/ML, PEN SQ-INSULIN SCH ×3 (07:00→16:06)
[2018-12-19] MEDS: TAMSULOSIN 0.4 MG CAP.ER.24H PO SCH (07:39)
[2018-12-19] MEDS: metFORMIN 500 MG TABLET PO SCH ×2 (07:39→16:09)
[2018-12-19] MEDS: PIPERACILLIN/TAZO/PMX 4.5GM 100 ML IV SCH ×2 (07:39→16:06)
[2018-12-19] MEDS: LACTOBACILLUS CHEW TABLET PO SCH ×2 (07:39→16:06)
[2018-12-19] MEDS: INSULIN GLARGINE 100 UNITS/ML, PEN SQ-INSULIN SCH (10:18)
[2018-12-19 15:29] VITALS: BP 129/64
[2018-12-19] MEDS ORDERED: GLIP5TAB10 PO (15:48)
== END 2018-12-19 19:00 | disposition home or self-care (01) | DRG 500 ==
LOC: ED 18:38 → EDIP 20:44 → 3NW 21:29
PROVIDERS: ADMIT Internal Medicine; ATTEND Internal Medicine
PROC: 0JDP0ZZ Extraction of Left Lower Leg Subcutaneous Tissue and Fascia, Open Approach (ICD-10-PCS; 2018-11-26)
PROC: 0J9P0ZZ Drainage of Left Lower Leg Subcutaneous Tissue and Fascia, Open Approach (ICD-10-PCS; principal; 2018-11-26 16:30)
PROC: 0KDT0ZZ Extraction of Left Lower Leg Muscle, Open Approach (ICD-10-PCS; 2018-11-30)
DX: T87.44 Infection of amputation stump, left lower extremity (principal); A41.9 Sepsis, unspecified organism; N17.0 Acute kidney failure with tubular necrosis; E44.0 Moderate protein-calorie malnutrition; E87.1 Hypo-osmolality and hyponatremia; D64.9 Anemia, unspecified; E11.319 Type 2 diabetes mellitus with unspecified diabetic retinopathy without macular edema; E11.65 Type 2 diabetes mellitus with hyperglycemia; E86.0 Dehydration; H54.8 Legal blindness, as defined in USA; M41.9 Scoliosis, unspecified; I25.10 Atherosclerotic heart disease of native coronary artery without angina pectoris; I10 Essential (primary) hypertension; N40.0 Benign prostatic hyperplasia without lower urinary tract symptoms; Y83.5 Amputation of limb(s) as the cause of abnormal reaction of the patient, or of later complication, without mention of misadventure at the time of the procedure; Z79.84 Long term (current) use of oral hypoglycemic drugs; Z87.442 Personal history of urinary calculi; Z87.81 Personal history of (healed) traumatic fracture; Z89.511 Acquired absence of right leg below knee
CPT/HCPCS: 36415; 80048; 80053; 80061; 80202; 82010; 82040; 82803; 82947; 82962; 83036; 83735; 84100; 84439; 84443; 85025; 85651; 86140; 87040; 87070; 87075; 87205; 87324; 90656; 90715; 96361; 96372; 96374; A9585; G0103; G0378; J0878; J1170; J1644; J2250; J2405; J2543; J2704; J3010; J3370; J3490; G0009; J0360; J1815; J2270; J2765; J3475; J7030; J7050

== ENCOUNTER 2020-02-13 15:27 | Inpatient (IN) | payer SELFPAY ==
[~2020-02-13] VITALS: Ht 172.7 cm; Wt 76.1 kg
[~2020-02-13 15:27] MED LIST changes: +GLIP5TAB10 PO; +INSU100I13 SQ-INSULIN
--- NOTE | 2020-02-13 15:40 | NUR ---
PT AMBULATORY TO ROOM, GAIT AT BASELINE. LAYING IN GURNEY, TALKING ON PHONE WHEN RN ENTERED. SON AT BEDSIDE. SON TO BE ON SITE WASTEWATER SYSTEMS TECHNICIAN, CONFIRMED WITH PT THAT HE WANTS SON TO TRANSLATE INSTEAD OF TRANSLATION SERVICES. NO SIGNS OF DISTRESS, DENIES FEELING SOB, DENIES SWOLLEN THROAT. DENIES BEING BIT BY ANYTHING. WILL CONTINUE TO MONITOR AND WATCH FOR ORDERS.
[2020-02-13] MEDS ORDERED: SODIUM CHLORIDE FLUSH 10ML SYR IVF ONE (16:00)
[2020-02-13] MEDS ORDERED: AMPICILLIN/SULBACTAM 3 GM in SODIUM CHLORIDE 0.9% 100 ML IV ONE (16:00)
[2020-02-13 16:22] LABS: BASOPHILS # (AUTO) 0.03 x10^3/uL (0-0.1); BASOPHILS % (AUTO) 1 % (0-1); EOSINOPHILS # (AUTO) 0.23 x10^3/uL (0-0.4); EOSINOPHILS % (AUTO) 4 % (1-7); LYMPHOCYTES % (AUTO) 31 % (22-44); MD NO; MEAN CORPUSCULAR HEMOGLOBIN 29.4 pg (27.5-34.5); MEAN CORPUSCULAR HGB CONC 33.4 g/dL (33.2-36.2); MEAN CORPUSCULAR VOLUME 88.2 fL (81-97); MEAN PLATELET VOLUME 8.6 fL (7.4-10.4); MONOCYTES # (AUTO) 0.46 x10^3/uL (0.2-0.8); MONOCYTES % (AUTO) 8 % (2-9); NEUTROPHILS # (AUTO) 3.22 x10^3/uL (1.8-6.8); NEUTROPHILS % (AUTO) 56 % (42-75); PLATELET COUNT 235 x10^3/uL (130-400); RED BLOOD COUNT 4.11 x10^6/uL (4.38-5.82); RED CELL DISTRIBUTION WIDTH 14.6 % (9.4-14.8)
--- NOTE | 2020-02-13 16:27 | NUR ---
PT LAYING IN BED, NO SIGNS OF DISTRESS, NO COMPLAINTS, RESPIRATIONS EVEN AND UNLABORED, VSS. SON REMAINS AT BEDSIDE.
[2020-02-13 16:30] LABS: ALBUMIN 2.3 g/dL (3.4-5.0); ANION GAP 6 mmol/L (5-15); CALCIUM 8.5 mg/dL (8.5-10.1); CHLORIDE 100 mmol/L (98-107); CREATININE 1.46 mg/dL (0.7-1.3)
--- NOTE | 2020-02-13 16:31 | NUR ---
assist RN:: per erp, no need for blood cultures at this time.
[2020-02-13] MEDS ORDERED: INSULIN SINGLE DOSE, ER ONE (16:37)
--- NOTE | 2020-02-13 16:48 | NUR ---
PT MEDICATED TO MAR, NO SIGNS OF DISTRESS, NO COMPLAINTS. WILL CONTINUE TO MONITOR.
[2020-02-13] MEDS ORDERED: SODIUM CHLORIDE 0.9% 1,000ML IVBOLUS ONE (17:00)
[2020-02-13] MEDS ORDERED: INSULIN REGULAR 100 UNITS/ML, 3ML VIAL SQ-INSULIN ONE (17:00)
--- NOTE | 2020-02-13 17:15 | NUR ---
PT TO IMAGING, NO SIGNS OF DISTRESS, ALL NEEDS MET AT THIS TIME.
[2020-02-13] MEDS ORDERED: OMNIPAQUE 350 MG/ML, 75ML BOTTLE ONE (17:28)
--- NOTE | 2020-02-13 17:47 | NUR ---
PT LAYING IN BED, NO COMPLAINTS, DENIES ANY COMPLAINTS AT THIS TIME. PROVIDED URINAL AT PT REQUEST.
--- NOTE | 2020-02-13 18:04 | NUR ---
PT LAYING IN BED, EYES CLOSED, RESPIRATONS EVEN AND UNLABORED. SON REMAINS AT BEDSIDE. WILL CONTINUE TO MONITOR.
--- NOTE | 2020-02-13 18:08 | NUR ---
PT HAS A HX OF HTN, BUT DOES NOT TAKE MEDICATION.
--- NOTE | 2020-02-13 18:48 | NUR ---
dr campos spoke with dr shen
--- NOTE | 2020-02-13 18:49 | NUR ---
PT RESTING ON [facility], MONITORS IN PLACE, SIDERAILS UP X2, CALL LIGHT WITHIN REACH. CHART UP FOR RECHECK
--- NOTE | 2020-02-13 18:54 | NUR ---
bedside report given to Karen DOHERTY
[2020-02-13] MEDS ORDERED: OXYcodone/APAP 5/325MG TABLET PO PRN (19:30)
[2020-02-13] MEDS ORDERED: ONDANSETRON 2MG/ML, 2ML IVPush PRN (19:30)
[2020-02-13] MEDS ORDERED: hydrALAzine 20 MG/ML, 1ML IVPush PRN (19:30)
--- NOTE | 2020-02-13 19:37 | NUR ---
DR CLARKE ON TELEPHONE, STATED THAT HE WILL BE DOING PROCEDURE TOMORROW NIGHT APPROXIMETLY 1900, PT MAY HAVE DIET ORDER AND KEEP NPO AFTER 6AM TOMORROW MORNING. WILL UPDATE ADMIT
[2020-02-13] MEDS: SODIUM CHLORIDE 0.9% 1,000 ML IV SCH ×2 (20:00→22:00)
--- NOTE | 2020-02-13 20:14 | NUR ---
PT RESTING ON GURNEY, IV FLUIDS INFUSING, DENIES NEED FOR PAIN MEDICATION. AWAITING ROOM FOR ADMIT
[2020-02-13 20:45] VITALS: BP 135/91
[2020-02-14] MEDS: AMPICILLIN/SULBACTAM 3 GM in SODIUM CHLORIDE 0.9% 100 ML IV SCH ×4 (01:26→19:40)
[2020-02-14] MEDS: INSULIN LISPRO 100 UNITS/ML, PEN SQ-INSULIN SCH ×5 (01:26→21:00)
[2020-02-14 02:00] VITALS: BP 126/89
[2020-02-14 07:00] LABS: BASOPHILS # (AUTO) 0.04 x10^3/uL (0-0.1); BASOPHILS % (AUTO) 1 % (0-1); EOSINOPHILS # (AUTO) 0.29 x10^3/uL (0-0.4); EOSINOPHILS % (AUTO) 5 % (1-7); LYMPHOCYTES # (AUTO) 2.83 x10^3/uL (1-3.4); LYMPHOCYTES % (AUTO) 44 % (22-44); MD NO; MEAN CORPUSCULAR HEMOGLOBIN 29.2 pg (27.5-34.5); MEAN CORPUSCULAR HGB CONC 33.2 g/dL (33.2-36.2); MEAN PLATELET VOLUME 8.1 fL (7.4-10.4); MONOCYTES # (AUTO) 0.53 x10^3/uL (0.2-0.8); MONOCYTES % (AUTO) 8 % (2-9); NEUTROPHILS # (AUTO) 2.71 x10^3/uL (1.8-6.8); NEUTROPHILS % (AUTO) 42 % (42-75); PLATELET COUNT 246 x10^3/uL (130-400); RED BLOOD COUNT 4.12 x10^6/uL (4.38-5.82); RED CELL DISTRIBUTION WIDTH 14.7 % (9.4-14.8)
[2020-02-14 07:10] LABS: ANION GAP 5 mmol/L (5-15); CALCIUM 8.8 mg/dL (8.5-10.1); CHLORIDE 107 mmol/L (98-107); CREATININE 1.22 mg/dL (0.7-1.3)
[2020-02-14 07:35] VITALS: BP 160/108
[2020-02-14] MEDS: TAMSULOSIN 0.4 MG CAP.ER.24H PO SCH (07:57)
[2020-02-14 08:06] VITALS: BP 151/101
[2020-02-14] MEDS: INSULIN GLARGINE 100 UNITS/ML, PEN SQ-INSULIN SCH (08:48)
[2020-02-14] MEDS: SODIUM CHLORIDE 0.9% 1,000 ML IV SCH (13:51)
[2020-02-14 14:30] VITALS: BP 101/66
[2020-02-14 18:33] VITALS: BP 121/80
[2020-02-14] MEDS ORDERED: LIDOCAINE 1%-EPI 1:100K, 20ML ONE (18:57)
[2020-02-14] MEDS ORDERED: FENTANYL PF 250 MCG/5ML ONE (19:08)
[2020-02-14] MEDS ORDERED: MIDAZOLAM 1 MG/ML, 2ML ONE (19:08)
[2020-02-14] MEDS ORDERED: NEOSTIGMINE 1 MG/ML, 10ML ONE (19:09)
[2020-02-14] MEDS ORDERED: ROCURONIUM 10 MG/ML,10ML ONE (19:09)
[2020-02-14] MEDS ORDERED: PROPOFOL 10 MG/ML, 20ML ONE (19:09)
[2020-02-14] MEDS ORDERED: GLYCOPYRROLATE 0.2MG/1ML, 5ML ONE (19:09)
[2020-02-14] MEDS ORDERED: LIDOCAINE 1%-EPI 1:100K, 20ML INFIL ONE (19:22)
[2020-02-14] MEDS ORDERED: SUGAMMADEX 200 MG/2 ML IVPush ONE (19:23)
[2020-02-14] MEDS ORDERED: MEPERIDINE/PF 25MG/0.5ML IVPush PRN (19:30)
[2020-02-14] MEDS ORDERED: OXYcodone 5 MG/5 ML ORAL.SOL UDC PO PRN (19:30)
[2020-02-14] MEDS ORDERED: morphine SULFATE 10 MG/ML, 1ML IVPush PRN (19:30)
[2020-02-14] MEDS ORDERED: LABETALOL 5MG/ML, 20ML IV PRN (19:30)
[2020-02-14] MEDS ORDERED: ONDANSETRON 2MG/ML, 2ML IVPush PRN (19:30)
[2020-02-14] MEDS ORDERED: ACETAMINOPHEN 325 MG TABLET PO PRN (19:30)
[2020-02-14] MEDS ORDERED: hydrALAzine 20 MG/ML, 1ML IV PRN (19:30)
[2020-02-14] MEDS: FENTANYL PF 100 MCG/2ML IV PRN ×2 (19:52→20:02)
[2020-02-14] MEDS ORDERED: FENTANYL PF 100 MCG/2ML ONE (19:53)
[2020-02-14] MEDS ORDERED: HYDROmorphone 1 MG/ML, 1ML INJ ONE (20:14)
[2020-02-14] MEDS: HYDROmorphone 1 MG/ML, 1ML INJ IVPush PRN ×2 (20:15→20:27)
[2020-02-14] MEDS: morphine SULFATE 10 MG/ML, 1ML IVPush PRN (22:08)
[2020-02-15 00:57] VITALS: BP 95/66
[2020-02-15] MEDS: morphine SULFATE 10 MG/ML, 1ML IVPush PRN (01:57)
[2020-02-15] MEDS: AMPICILLIN/SULBACTAM 3 GM in SODIUM CHLORIDE 0.9% 100 ML IV SCH ×3 (01:57→15:30)
[2020-02-15 03:37] VITALS: BP 106/72
[2020-02-15] MEDS: SODIUM CHLORIDE 0.9% 1,000 ML IV SCH (05:51)
[2020-02-15 05:52] LABS: BASOPHILS # (AUTO) 0.03 x10^3/uL (0-0.1); BASOPHILS % (AUTO) 1 % (0-1); EOSINOPHILS # (AUTO) 0.27 x10^3/uL (0-0.4); EOSINOPHILS % (AUTO) 5 % (1-7); LYMPHOCYTES # (AUTO) 2.34 x10^3/uL (1-3.4); LYMPHOCYTES % (AUTO) 44 % (22-44); MD NO; MEAN CORPUSCULAR HEMOGLOBIN 29.6 pg (27.5-34.5); MEAN CORPUSCULAR HGB CONC 33.2 g/dL (33.2-36.2); MEAN CORPUSCULAR VOLUME 89.2 fL (81-97); MEAN PLATELET VOLUME 7.6 fL (7.4-10.4); MONOCYTES # (AUTO) 0.41 x10^3/uL (0.2-0.8); MONOCYTES % (AUTO) 8 % (2-9); NEUTROPHILS # (AUTO) 2.25 x10^3/uL (1.8-6.8); NEUTROPHILS % (AUTO) 43 % (42-75); PLATELET COUNT 241 x10^3/uL (130-400); RED BLOOD COUNT 3.99 x10^6/uL (4.38-5.82); RED CELL DISTRIBUTION WIDTH 15.3 % (9.4-14.8)
[2020-02-15 05:58] LABS: ANION GAP 6 mmol/L (5-15); CALCIUM 8.4 mg/dL (8.5-10.1); CHLORIDE 113 mmol/L (98-107)
[2020-02-15 06:00] LABS: CREATININE 1.06 mg/dL (0.7-1.3)
[2020-02-15] MEDS: INSULIN LISPRO 100 UNITS/ML, PEN SQ-INSULIN SCH ×2 (06:15→12:00)
[2020-02-15 07:33] VITALS: BP 110/70
[2020-02-15] MEDS ORDERED: CHLORHEXIDINE 15 ML UDC MM SCH (09:00)
[2020-02-15] MEDS: ACETAMINOPHEN 325 MG TABLET PO PRN ×2 (09:21→15:49)
[2020-02-15] MEDS: TAMSULOSIN 0.4 MG CAP.ER.24H PO SCH (09:21)
[2020-02-15 09:26] VITALS: BP 125/85
[2020-02-15] MEDS: INSULIN GLARGINE 100 UNITS/ML, PEN SQ-INSULIN SCH (12:00)
[2020-02-15 13:54] VITALS: BP 103/70
[2020-02-15] MEDS ORDERED: AMOX1TAB64 PO (13:58)
[2020-02-15] MEDS ORDERED: ACET325T26 PO (13:58)
== END 2020-02-15 16:18 | disposition home or self-care (01) | DRG 131 ==
LOC: ED 17:01 → EDIP 21:08 → 4NE 21:23
PROVIDERS: ADMIT Internal Medicine; ATTEND Internal Medicine
PROC: 0NQR0ZZ Repair Maxilla, Open Approach (ICD-10-PCS; 2020-02-14)
PROC: 0CTW0Z1 Resection of Upper Tooth, Multiple, Open Approach (ICD-10-PCS; 2020-02-14)
PROC: 0C9W0Z0 Drainage of Upper Tooth, Open Approach, Single (ICD-10-PCS; 2020-02-14)
PROC: 0CTX0Z0 Resection of Lower Tooth, Single, Open Approach (ICD-10-PCS; principal; 2020-02-14 19:00)
DX: K04.6 Periapical abscess with sinus (principal); L03.211 Cellulitis of face; E87.1 Hypo-osmolality and hyponatremia; E11.65 Type 2 diabetes mellitus with hyperglycemia; D64.9 Anemia, unspecified; K02.9 Dental caries, unspecified; M27.2 Inflammatory conditions of jaws; N40.0 Benign prostatic hyperplasia without lower urinary tract symptoms; Z89.512 Acquired absence of left leg below knee; Z91.19 Patient's noncompliance with other medical treatment and regimen; Z79.84 Long term (current) use of oral hypoglycemic drugs
CPT/HCPCS: 36415; 70100; 70487; 80048; 82040; 82962; 85025; 96372; 96374; 99291; G0378; J0295; J1170; J2250; J2704; J2710; J3010; J3490; Q9967; J0360; J1815; J2270; J7030

== ENCOUNTER 2020-05-12 19:20 | Inpatient (IN) | payer SELFPAY ==
[~2020-05-12] VITALS: Ht 167.6 cm; Wt 77.7 kg
[~2020-05-12 19:20] MED LIST changes: +ACET325T26 PO; +AMOX1TAB64 PO
--- NOTE | 2020-05-12 20:22 | NUR ---
DR MURILLO BS FOR EXAM. [employer] PRESENTATION SPECIALIST USED #[id number]. PT C/O PAIN IN LT FOOT (NON-EXISTANT). PAIN STARTED YESTERDAY. DENIES TRAUMA, FEVER, CHILLS. REPORTS INTERMITTENT ABD PAIN. TAKES LEVEMIR INSULIN 15 UNITS. PT'S SPOUSE IN ROOM - ALSO NON-BELARUSIAN SPEAKING.
[2020-05-12] MEDS ORDERED: METF850T10 PO (20:29)
[2020-05-12] MEDS ORDERED: ATOR10TA9 PO (20:29)
[2020-05-12] MEDS ORDERED: ASPI-682 PO (20:29)
[2020-05-12] MEDS ORDERED: INSU100I28 SQ (20:29)
[2020-05-12] MEDS ORDERED: SODIUM CHLORIDE FLUSH 10ML SYR IVF ONE (20:30)
[2020-05-12] MEDS ORDERED: ACETAMINOPHEN 325 MG TABLET PO ONE (20:30)
[2020-05-12] MEDS ORDERED: ACETAMINOPHEN 325 MG TABLET ONE (20:37)
[2020-05-12 20:56] LABS: BASOPHILS # (AUTO) 0.02 x10^3/uL (0-0.1); BASOPHILS % (AUTO) 0 % (0-1); EOSINOPHILS # (AUTO) 0.07 x10^3/uL (0-0.4); EOSINOPHILS % (AUTO) 1 % (1-7); LYMPHOCYTES % (AUTO) 16 % (22-44); MD NO; MEAN CORPUSCULAR HGB CONC 33.3 g/dL (33.2-36.2); MEAN CORPUSCULAR VOLUME 87.1 fL (81-97); MEAN PLATELET VOLUME 8.7 fL (7.4-10.4); MONOCYTES # (AUTO) 0.35 x10^3/uL (0.2-0.8); MONOCYTES % (AUTO) 5 % (2-9); NEUTROPHILS # (AUTO) 5.94 x10^3/uL (1.8-6.8); NEUTROPHILS % (AUTO) 78 % (42-75); PLATELET COUNT 324 x10^3/uL (130-400); RED BLOOD COUNT 4.41 x10^6/uL (4.38-5.82); RED CELL DISTRIBUTION WIDTH 14.3 % (9.4-14.8)
[2020-05-12 21:05] LABS: ALANINE AMINOTRANSFERASE 15 U/L (12-78); ALBUMIN 2.4 g/dL (3.4-5.0); ANION GAP 9 mmol/L (5-15); CALCIUM 8.5 mg/dL (8.5-10.1); CHLORIDE 105 mmol/L (98-107); CREATININE 1.52 mg/dL (0.7-1.3)
[2020-05-12 21:08] LABS: ALKALINE PHOSPHATASE 110 U/L (45-117); BILIRUBIN,TOTAL 0.3 mg/dL (0.2-1.0); TOTAL PROTEIN 7.6 g/dL (6.4-8.2)
--- NOTE | 2020-05-12 21:22 | NUR ---
BLD CX'S DRAWN. TYLENOL GIVEN PER EMAR.
[2020-05-12] MEDS ORDERED: SODIUM CHLORIDE FLUSH 10ML SYR IVF PRN (21:30)
[2020-05-12] MEDS ORDERED: CEFTRIAXONE PMX 1GM/50ML 50 ML IVPB ONE (21:30)
[2020-05-12 21:39] LABS: MICROSCOPIC AUTO
--- NOTE | 2020-05-12 21:55 | NUR ---
PT REPORT TO CHAS CRISTINA. PT CARE TRANSFERRED.
[2020-05-12] MEDS ORDERED: CEFTRIAXONE PMX 1GM/50ML 50 ML ONE (21:58)
--- NOTE | 2020-05-12 22:02 | NUR ---
PT REPORT TO CHAS JULIAN (STAFF DEVELOPMENT MANAGER)
[2020-05-12] MEDS: SODIUM CHLORIDE 0.9% 1,000 ML IV SCH (23:01)
--- NOTE | 2020-05-12 23:04 | NUR ---
SEPSIS PROTOCAL FLUIDS GIVEN PER PROVIDER VERBAL ORDER
[2020-05-12] MEDS ORDERED: MELATONIN 5 MG TABLET PO PRN (23:30)
[2020-05-12] MEDS ORDERED: SODIUM CHLORIDE 0.9% 1,000ML IVBOLUS ONE (23:30)
[2020-05-12] MEDS ORDERED: DOCUSATE 100 MG CAPSULE PO PRN (23:30)
[2020-05-12] MEDS: HEPARIN 5,000 UNITS/ML, 1ML SQ SCH (23:30)
[2020-05-12] MEDS ORDERED: ACETAMINOPHEN 325 MG TABLET PO PRN (23:30)
--- NOTE | 2020-05-12 23:34 | NUR ---
SEPSIS FLUID BOLUS COMPLETE AND STOPED AT 2334 JUST PRIOR TO PT TRANSFER TO FLOOR ROOM
[2020-05-12 23:45] VITALS: BP 117/75
[2020-05-13 00:04] VITALS: BP 117/75
[2020-05-13] MEDS: INSULIN LISPRO 100 UNITS/ML, PEN SQ-INSULIN SCH ×5 (01:52→21:20)
[2020-05-13] MEDS: INSULIN GLARGINE 100 UNITS/ML, PEN SQ-INSULIN SCH ×2 (01:52→21:20)
[2020-05-13] MEDS: HEPARIN 5,000 UNITS/ML, 1ML SQ SCH ×4 (02:18→23:38)
[2020-05-13 03:16] LABS: CLOSTRIDIUM DIFFICILE ANTIGEN POSITIVE; CLOSTRIDIUM DIFFICILE TOXIN NEGATIVE (Negative)
[2020-05-13 05:43] LABS: ANION GAP 6 mmol/L (5-15); BASOPHILS # (AUTO) 0.02 x10^3/uL (0-0.1); BASOPHILS % (AUTO) 0 % (0-1); CALCIUM 7.8 mg/dL (8.5-10.1); CHLORIDE 113 mmol/L (98-107); EOSINOPHILS # (AUTO) 0.12 x10^3/uL (0-0.4); EOSINOPHILS % (AUTO) 1 % (1-7); LYMPHOCYTES # (AUTO) 2.13 x10^3/uL (1-3.4); LYMPHOCYTES % (AUTO) 23 % (22-44); MD NO; MEAN CORPUSCULAR HEMOGLOBIN 29.1 pg (27.5-34.5); MEAN CORPUSCULAR HGB CONC 33.1 g/dL (33.2-36.2); MEAN CORPUSCULAR VOLUME 87.9 fL (81-97); MEAN PLATELET VOLUME 8.4 fL (7.4-10.4); MONOCYTES # (AUTO) 0.93 x10^3/uL (0.2-0.8); MONOCYTES % (AUTO) 10 % (2-9); NEUTROPHILS # (AUTO) 5.99 x10^3/uL (1.8-6.8); NEUTROPHILS % (AUTO) 65 % (42-75); PLATELET COUNT 274 x10^3/uL (130-400); RED BLOOD COUNT 3.69 x10^6/uL (4.38-5.82); RED CELL DISTRIBUTION WIDTH 14.7 % (9.4-14.8)
[2020-05-13 05:44] LABS: CREATININE 1.24 mg/dL (0.7-1.3)
[2020-05-13] MEDS ORDERED: CEFTRIAXONE PMX 1GM/50ML 50 ML IV SCH (07:30)
[2020-05-13] MEDS: ATORVASTATIN 10 MG TABLET PO SCH (08:08)
[2020-05-13] MEDS: ASPIRIN 81 MG TABLET EC PO SCH (08:08)
[2020-05-13] MEDS: SODIUM CHLORIDE 0.9% 1,000 ML IV SCH ×2 (08:09→21:21)
[2020-05-13 08:17] VITALS: BP 117/77
[2020-05-13] MEDS ORDERED: PHARMACOKINETIC MONITORING MC PRN (10:00)
[2020-05-13] MEDS ORDERED: PHARMACOKINETIC CONSULTATION MC ONE (10:00)
[2020-05-13] MEDS ORDERED: VANCOMYCIN PER PHARMACY MC PRN (10:00)
[2020-05-13] MEDS ORDERED: VANCOMYCIN 1,800 MG in SODIUM CHLORIDE 0.9% 250 ML IV ONE (10:30)
[2020-05-13] MEDS: POTASSIUM CHLORIDE 20 MEQ TAB.ER.PRT PO SCH (11:27)
[2020-05-13] MEDS: AMPICILLIN/SULBACTAM 1,500 MG in SODIUM CHLORIDE 0.9% 50 ML IV SCH ×3 (11:27→23:38)
[2020-05-13 13:59] VITALS: BP 93/60
[2020-05-13] MEDS ORDERED: GADOTERATE 7.5 MMOL/15 ML SYR ONE (15:17)
[2020-05-13 18:48] VITALS: BP 152/96
[2020-05-14 01:37] VITALS: BP 112/76
[2020-05-14] MEDS: SODIUM CHLORIDE 0.9% 1,000 ML IV SCH (03:00)
[2020-05-14] MEDS: VANCOMYCIN 1,400 MG in SODIUM CHLORIDE 0.9% 250 ML IV SCH ×2 (04:35→22:06)
[2020-05-14 05:21] LABS: CHLORIDE 113 mmol/L (98-107)
[2020-05-14 05:25] LABS: BASOPHILS # (AUTO) 0.02 x10^3/uL (0-0.1); BASOPHILS % (AUTO) 0 % (0-1); EOSINOPHILS # (AUTO) 0.13 x10^3/uL (0-0.4); EOSINOPHILS % (AUTO) 2 % (1-7); LYMPHOCYTES % (AUTO) 27 % (22-44); MD NO; MEAN CORPUSCULAR HEMOGLOBIN 29.1 pg (27.5-34.5); MEAN CORPUSCULAR HGB CONC 33.2 g/dL (33.2-36.2); MEAN CORPUSCULAR VOLUME 87.8 fL (81-97); MONOCYTES # (AUTO) 0.81 x10^3/uL (0.2-0.8); MONOCYTES % (AUTO) 11 % (2-9); NEUTROPHILS # (AUTO) 4.38 x10^3/uL (1.8-6.8); NEUTROPHILS % (AUTO) 60 % (42-75); PLATELET COUNT 295 x10^3/uL (130-400); RED BLOOD COUNT 3.54 x10^6/uL (4.38-5.82)
[2020-05-14 05:31] LABS: ALANINE AMINOTRANSFERASE 11 U/L (12-78); ALBUMIN 1.9 g/dL (3.4-5.0); ALKALINE PHOSPHATASE 84 U/L (45-117); ANION GAP 5 mmol/L (5-15); BILIRUBIN,TOTAL 0.3 mg/dL (0.2-1.0); CALCIUM 8.3 mg/dL (8.5-10.1)
[2020-05-14] MEDS: AMPICILLIN/SULBACTAM 1,500 MG in SODIUM CHLORIDE 0.9% 50 ML IV SCH ×2 (06:16→12:41)
[2020-05-14] MEDS: HEPARIN 5,000 UNITS/ML, 1ML SQ SCH ×3 (08:57→23:03)
[2020-05-14] MEDS: ATORVASTATIN 10 MG TABLET PO SCH (08:57)
[2020-05-14] MEDS: POTASSIUM CHLORIDE 20 MEQ TAB.ER.PRT PO SCH (08:57)
[2020-05-14] MEDS: ASPIRIN 81 MG TABLET EC PO SCH (08:57)
[2020-05-14] MEDS: INSULIN LISPRO 100 UNITS/ML, PEN SQ-INSULIN SCH ×4 (08:58→21:08)
[2020-05-14 09:17] VITALS: BP 105/70
[2020-05-14] MEDS: VANCOMYCIN 50 MG/ML ORAL SUSP PO SCH ×3 (09:17→21:08)
[2020-05-14 12:49] VITALS: BP 128/88
[2020-05-14 17:05] LABS: ESTIMATED AVERAGE GLUCOSE 355 mg/dL (0-126)
[2020-05-14] MEDS ORDERED: AMPICILLIN/SULBACTAM 1,500 MG in SODIUM CHLORIDE 0.9% 100 ML IV SCH (17:15)
[2020-05-14 19:59] VITALS: BP 120/82
[2020-05-14] MEDS: INSULIN GLARGINE 100 UNITS/ML, PEN SQ-INSULIN SCH (21:08)
[2020-05-14] MEDS: AMPICILLIN/SULBACTAM 1,500 MG in SODIUM CHLORIDE 0.9% 100 ML IV SCH (23:02)
[2020-05-15 01:25] VITALS: BP 127/81
[2020-05-15] MEDS: VANCOMYCIN 50 MG/ML ORAL SUSP PO SCH ×4 (02:33→20:47)
[2020-05-15] MEDS: AMPICILLIN/SULBACTAM 1,500 MG in SODIUM CHLORIDE 0.9% 100 ML IV SCH ×2 (04:41→11:53)
[2020-05-15] MEDS: SODIUM CHLORIDE 0.9% 1,000 ML IV SCH (04:41)
[2020-05-15 05:38] LABS: BASOPHILS # (AUTO) 0.03 x10^3/uL (0-0.1); BASOPHILS % (AUTO) 1 % (0-1); EOSINOPHILS # (AUTO) 0.28 x10^3/uL (0-0.4); EOSINOPHILS % (AUTO) 4 % (1-7); LYMPHOCYTES % (AUTO) 38 % (22-44); MD NO; MEAN CORPUSCULAR HEMOGLOBIN 28.5 pg (27.5-34.5); MEAN CORPUSCULAR HGB CONC 31.9 g/dL (33.2-36.2); MEAN CORPUSCULAR VOLUME 89.3 fL (81-97); MEAN PLATELET VOLUME 7.6 fL (7.4-10.4); MONOCYTES # (AUTO) 0.78 x10^3/uL (0.2-0.8); MONOCYTES % (AUTO) 12 % (2-9); NEUTROPHILS # (AUTO) 3.05 x10^3/uL (1.8-6.8); NEUTROPHILS % (AUTO) 46 % (42-75); PLATELET COUNT 315 x10^3/uL (130-400); RED BLOOD COUNT 3.57 x10^6/uL (4.38-5.82); RED CELL DISTRIBUTION WIDTH 14.9 % (9.4-14.8)
[2020-05-15 05:46] LABS: ANION GAP 5 mmol/L (5-15); CHLORIDE 114 mmol/L (98-107); CREATININE 1.06 mg/dL (0.7-1.3)
[2020-05-15] MEDS: INSULIN LISPRO 100 UNITS/ML, PEN SQ-INSULIN SCH ×4 (07:00→20:41)
[2020-05-15 08:30] VITALS: BP 154/98
[2020-05-15] MEDS: HEPARIN 5,000 UNITS/ML, 1ML SQ SCH ×3 (09:04→23:30)
[2020-05-15] MEDS: ATORVASTATIN 10 MG TABLET PO SCH (09:04)
[2020-05-15] MEDS: POTASSIUM CHLORIDE 20 MEQ TAB.ER.PRT PO SCH (09:04)
[2020-05-15] MEDS: ASPIRIN 81 MG TABLET EC PO SCH (09:04)
[2020-05-15 13:21] VITALS: BP 171/104
[2020-05-15] MEDS ORDERED: LACTATED RINGERS 1,000 ML IV SCH (13:58)
[2020-05-15] MEDS ORDERED: CHLORHEXIDINE 15 ML UDC MM ONE (14:00)
[2020-05-15] MEDS ORDERED: ACETAMINOPHEN 325 MG TABLET PO PRN (14:30)
[2020-05-15] MEDS ORDERED: HYDROmorphone 1 MG/ML, 1ML INJ IVPush PRN (14:30)
[2020-05-15] MEDS ORDERED: LABETALOL 5MG/ML, 20ML IV PRN (14:30)
[2020-05-15] MEDS ORDERED: MEPERIDINE/PF 25MG/0.5ML IVPush PRN (14:30)
[2020-05-15] MEDS ORDERED: PROMETHAZINE 25 MG/ML, 1ML IVPush PRN (14:30)
[2020-05-15] MEDS ORDERED: ONDANSETRON 2MG/ML, 2ML IVPush PRN (14:30)
[2020-05-15] MEDS ORDERED: hydrALAzine 20 MG/ML, 1ML IV PRN (14:30)
[2020-05-15] MEDS ORDERED: FENTANYL PF 100 MCG/2ML IV PRN (14:30)
[2020-05-15] MEDS ORDERED: OXYcodone 5 MG/5 ML ORAL.SOL UDC PO PRN (14:30)
[2020-05-15] MEDS ORDERED: FENTANYL PF 250 MCG/5ML ONE (14:53)
[2020-05-15] MEDS ORDERED: METOCLOPRAMIDE 5 MG/ML, 2ML ONE (15:33)
[2020-05-15] MEDS ORDERED: EPHEDRINE 50 MG/ML, 1ML ONE (15:37)
[2020-05-15] MEDS ORDERED: PROPOFOL 10 MG/ML, 20ML ONE (15:41)
[2020-05-15] MEDS ORDERED: ONDANSETRON 2MG/ML, 2ML ONE ×2 (15:41→15:56)
[2020-05-15 19:26] VITALS: BP 159/105
[2020-05-15] MEDS: hydrALAzine 20 MG/ML, 1ML IV PRN (19:27)
[2020-05-15] MEDS: INSULIN GLARGINE 100 UNITS/ML, PEN SQ-INSULIN SCH (20:48)
[2020-05-16] MEDS: VANCOMYCIN 50 MG/ML ORAL SUSP PO SCH ×4 (03:13→20:46)
[2020-05-16] MEDS: SODIUM CHLORIDE 0.9% 1,000 ML IV SCH (03:13)
[2020-05-16 03:40] VITALS: BP 130/81
[2020-05-16 05:03] LABS: HCT (SEDRATE) 31.2 % (39.2-51.8)
[2020-05-16 05:26] LABS: C-REACTIVE PROTEIN, QUANT 4.6 mg/dL (0.02-0.49)
[2020-05-16] MEDS: INSULIN LISPRO 100 UNITS/ML, PEN SQ-INSULIN SCH ×4 (07:00→20:49)
[2020-05-16] MEDS: HEPARIN 5,000 UNITS/ML, 1ML SQ SCH ×2 (07:30→17:21)
[2020-05-16] MEDS: POTASSIUM CHLORIDE 20 MEQ TAB.ER.PRT PO SCH (08:00)
[2020-05-16] MEDS: ASPIRIN 81 MG TABLET EC PO SCH (08:11)
[2020-05-16 13:10] VITALS: BP 106/72
[2020-05-16] MEDS: VANCOMYCIN 1,400 MG in SODIUM CHLORIDE 0.9% 250 ML IV SCH (14:16)
[2020-05-16] MEDS: ATORVASTATIN 10 MG TABLET PO SCH (17:21)
[2020-05-16 19:06] VITALS: BP 160/104
[2020-05-16] MEDS: hydrALAzine 20 MG/ML, 1ML IV PRN (20:46)
[2020-05-16] MEDS: INSULIN GLARGINE 100 UNITS/ML, PEN SQ-INSULIN SCH (20:49)
[2020-05-16 23:23] VITALS: BP 118/81
[2020-05-17 00:35] VITALS: BP 152/101
[2020-05-17 01:11] VITALS: BP 140/91
[2020-05-17] MEDS: HEPARIN 5,000 UNITS/ML, 1ML SQ SCH ×3 (01:11→18:04)
[2020-05-17] MEDS: VANCOMYCIN 50 MG/ML ORAL SUSP PO SCH ×4 (03:32→22:18)
[2020-05-17 06:37] VITALS: BP 112/80
[2020-05-17] MEDS: INSULIN LISPRO 100 UNITS/ML, PEN SQ-INSULIN SCH ×4 (07:00→22:19)
[2020-05-17] MEDS: POTASSIUM CHLORIDE 20 MEQ TAB.ER.PRT PO SCH (10:27)
[2020-05-17] MEDS: ATORVASTATIN 10 MG TABLET PO SCH (10:28)
[2020-05-17] MEDS: ASPIRIN 81 MG TABLET EC PO SCH (10:28)
[2020-05-17 13:25] VITALS: BP 160/105
[2020-05-17] MEDS: VANCOMYCIN 1,400 MG in SODIUM CHLORIDE 0.9% 250 ML IV SCH (15:21)
[2020-05-17 18:05] VITALS: BP 125/91
[2020-05-17 19:16] VITALS: BP 141/97
[2020-05-17] MEDS: INSULIN GLARGINE 100 UNITS/ML, PEN SQ-INSULIN SCH (22:19)
[2020-05-18 01:14] VITALS: BP 151/93
[2020-05-18] MEDS: HEPARIN 5,000 UNITS/ML, 1ML SQ SCH ×3 (01:21→16:17)
[2020-05-18] MEDS: VANCOMYCIN 50 MG/ML ORAL SUSP PO SCH ×3 (04:06→16:17)
[2020-05-18] MEDS: INSULIN LISPRO 100 UNITS/ML, PEN SQ-INSULIN SCH ×4 (07:00→21:25)
[2020-05-18 07:55] VITALS: BP 158/89
[2020-05-18] MEDS: ASPIRIN 81 MG TABLET EC PO SCH (09:11)
[2020-05-18] MEDS: CEFAZOLIN PMX 1GM/50ML 50 ML IV SCH ×2 (09:11→16:17)
[2020-05-18] MEDS: ATORVASTATIN 10 MG TABLET PO SCH (09:11)
[2020-05-18] MEDS: POTASSIUM CHLORIDE 20 MEQ TAB.ER.PRT PO SCH (09:11)
[2020-05-18] MEDS: VANCOMYCIN 1,400 MG in SODIUM CHLORIDE 0.9% 250 ML IV SCH (13:42)
[2020-05-18 13:46] VITALS: BP 148/85
[2020-05-18 18:57] VITALS: BP 171/109
[2020-05-18] MEDS: hydrALAzine 20 MG/ML, 1ML IV PRN (20:11)
[2020-05-18] MEDS: INSULIN GLARGINE 100 UNITS/ML, PEN SQ-INSULIN SCH (21:25)
[2020-05-18 21:26] VITALS: BP 149/102
[2020-05-19] MEDS: CEFAZOLIN PMX 1GM/50ML 50 ML IV SCH ×3 (00:12→16:24)
[2020-05-19] MEDS: VANCOMYCIN 50 MG/ML ORAL SUSP PO SCH ×4 (00:13→16:24)
[2020-05-19] MEDS: HEPARIN 5,000 UNITS/ML, 1ML SQ SCH ×3 (00:13→16:24)
[2020-05-19 00:14] VITALS: BP 114/82
[2020-05-19 05:24] LABS: ALANINE AMINOTRANSFERASE 17 U/L (12-78); ALBUMIN 2.1 g/dL (3.4-5.0); ANION GAP 6 mmol/L (5-15); CHLORIDE 112 mmol/L (98-107); CREATININE 1.06 mg/dL (0.7-1.3)
[2020-05-19 05:26] LABS: BASOPHILS # (AUTO) 0.04 x10^3/uL (0-0.1); BASOPHILS % (AUTO) 1 % (0-1); EOSINOPHILS # (AUTO) 0.46 x10^3/uL (0-0.4); EOSINOPHILS % (AUTO) 5 % (1-7); LYMPHOCYTES # (AUTO) 3.21 x10^3/uL (1-3.4); LYMPHOCYTES % (AUTO) 37 % (22-44); MD NO; MEAN CORPUSCULAR HEMOGLOBIN 28.9 pg (27.5-34.5); MEAN CORPUSCULAR HGB CONC 32.8 g/dL (33.2-36.2); MEAN CORPUSCULAR VOLUME 88.2 fL (81-97); MEAN PLATELET VOLUME 7.4 fL (7.4-10.4); MONOCYTES # (AUTO) 0.51 x10^3/uL (0.2-0.8); MONOCYTES % (AUTO) 6 % (2-9); NEUTROPHILS % (AUTO) 51 % (42-75); PLATELET COUNT 519 x10^3/uL (130-400); RED BLOOD COUNT 3.46 x10^6/uL (4.38-5.82); RED CELL DISTRIBUTION WIDTH 14.9 % (9.4-14.8)
[2020-05-19 05:31] LABS: HCT (SEDRATE) 30.6 % (39.2-51.8)
[2020-05-19 05:34] LABS: ALKALINE PHOSPHATASE 99 U/L (45-117); BILIRUBIN,TOTAL 0.2 mg/dL (0.2-1.0); TOTAL PROTEIN 6.5 g/dL (6.4-8.2)
[2020-05-19 06:40] VITALS: BP 119/81
[2020-05-19] MEDS: INSULIN LISPRO 100 UNITS/ML, PEN SQ-INSULIN SCH ×4 (07:00→20:53)
[2020-05-19] MEDS: ATORVASTATIN 10 MG TABLET PO SCH (08:12)
[2020-05-19] MEDS: ASPIRIN 81 MG TABLET EC PO SCH (08:12)
[2020-05-19 12:53] VITALS: BP 97/62
[2020-05-19 19:23] VITALS: BP 124/81
[2020-05-19] MEDS: INSULIN GLARGINE 100 UNITS/ML, PEN SQ-INSULIN SCH (20:53)
[2020-05-20] MEDS: CEFAZOLIN PMX 1GM/50ML 50 ML IV SCH ×3 (00:21→18:23)
[2020-05-20] MEDS: VANCOMYCIN 50 MG/ML ORAL SUSP PO SCH ×4 (00:21→18:23)
[2020-05-20 00:46] VITALS: BP 160/105
[2020-05-20] MEDS: HEPARIN 5,000 UNITS/ML, 1ML SQ SCH ×3 (01:55→18:23)
[2020-05-20] MEDS: INSULIN LISPRO 100 UNITS/ML, PEN SQ-INSULIN SCH ×4 (07:00→20:14)
[2020-05-20 07:58] VITALS: BP 120/83
[2020-05-20] MEDS: ASPIRIN 81 MG TABLET EC PO SCH (10:36)
[2020-05-20] MEDS: ATORVASTATIN 10 MG TABLET PO SCH (10:36)
[2020-05-20 12:59] VITALS: BP 126/95
[2020-05-20] MEDS: INSULIN GLARGINE 100 UNITS/ML, PEN SQ-INSULIN SCH (20:14)
[2020-05-20 20:23] VITALS: BP 140/99
[2020-05-21] MEDS: VANCOMYCIN 50 MG/ML ORAL SUSP PO SCH ×5 (00:01→22:34)
[2020-05-21 01:47] VITALS: BP 120/83
[2020-05-21] MEDS: HEPARIN 5,000 UNITS/ML, 1ML SQ SCH ×3 (02:17→17:14)
[2020-05-21] MEDS: CEFAZOLIN PMX 1GM/50ML 50 ML IV SCH ×4 (02:17→23:49)
[2020-05-21] MEDS: INSULIN LISPRO 100 UNITS/ML, PEN SQ-INSULIN SCH ×4 (07:00→21:14)
[2020-05-21 07:25] VITALS: BP 124/83
[2020-05-21] MEDS: ASPIRIN 81 MG TABLET EC PO SCH (08:43)
[2020-05-21] MEDS: ATORVASTATIN 10 MG TABLET PO SCH (08:43)
[2020-05-21 12:51] VITALS: BP 91/52
[2020-05-21 19:28] VITALS: BP 124/81
[2020-05-21] MEDS: DOXYCYCLINE 100MG TABLET PO SCH (21:01)
[2020-05-21] MEDS: INSULIN GLARGINE 100 UNITS/ML, PEN SQ-INSULIN SCH (21:15)
[2020-05-22] MEDS: HEPARIN 5,000 UNITS/ML, 1ML SQ SCH ×3 (01:15→16:18)
[2020-05-22 01:19] VITALS: BP 126/85
[2020-05-22] MEDS: VANCOMYCIN 50 MG/ML ORAL SUSP PO SCH ×4 (04:50→23:03)
[2020-05-22 06:11] LABS: BASOPHILS # (AUTO) 0.05 x10^3/uL (0-0.1); BASOPHILS % (AUTO) 1 % (0-1); EOSINOPHILS # (AUTO) 0.58 x10^3/uL (0-0.4); EOSINOPHILS % (AUTO) 5 % (1-7); LYMPHOCYTES # (AUTO) 4.22 x10^3/uL (1-3.4); LYMPHOCYTES % (AUTO) 38 % (22-44); MD NO; MEAN CORPUSCULAR HGB CONC 32.6 g/dL (33.2-36.2); MEAN CORPUSCULAR VOLUME 89.2 fL (81-97); MEAN PLATELET VOLUME 7.3 fL (7.4-10.4); MONOCYTES # (AUTO) 0.67 x10^3/uL (0.2-0.8); MONOCYTES % (AUTO) 6 % (2-9); NEUTROPHILS # (AUTO) 5.46 x10^3/uL (1.8-6.8); NEUTROPHILS % (AUTO) 50 % (42-75); PLATELET COUNT 572 x10^3/uL (130-400); RED BLOOD COUNT 3.55 x10^6/uL (4.38-5.82); RED CELL DISTRIBUTION WIDTH 15.1 % (9.4-14.8)
[2020-05-22] MEDS: INSULIN LISPRO 100 UNITS/ML, PEN SQ-INSULIN SCH ×4 (07:00→21:27)
[2020-05-22 07:11] VITALS: BP 121/82
[2020-05-22 07:52] LABS: ANION GAP 5 mmol/L (5-15); CALCIUM 9.2 mg/dL (8.5-10.1); CHLORIDE 117 mmol/L (98-107)
[2020-05-22 07:53] LABS: CREATININE 1.72 mg/dL (0.7-1.3)
[2020-05-22] MEDS: ASPIRIN 81 MG TABLET EC PO SCH (08:09)
[2020-05-22] MEDS: DOXYCYCLINE 100MG TABLET PO SCH ×2 (08:09→20:27)
[2020-05-22] MEDS: ATORVASTATIN 10 MG TABLET PO SCH (08:09)
[2020-05-22] MEDS: CEFAZOLIN PMX 1GM/50ML 50 ML IV SCH ×2 (09:51→16:18)
[2020-05-22 13:25] VITALS: BP 155/107
[2020-05-22 14:05] VITALS: BP 115/76
[2020-05-22 19:56] VITALS: BP 125/70
[2020-05-22] MEDS: INSULIN GLARGINE 100 UNITS/ML, PEN SQ-INSULIN SCH (20:27)
[2020-05-23 00:38] VITALS: BP 115/79
[2020-05-23] MEDS: HEPARIN 5,000 UNITS/ML, 1ML SQ SCH ×3 (01:15→17:00)
[2020-05-23] MEDS: VANCOMYCIN 50 MG/ML ORAL SUSP PO SCH ×4 (05:43→23:14)
[2020-05-23] MEDS: INSULIN LISPRO 100 UNITS/ML, PEN SQ-INSULIN SCH ×4 (07:00→21:28)
[2020-05-23 07:17] VITALS: BP 96/62
[2020-05-23] MEDS: CEFAZOLIN PMX 1GM/50ML 50 ML IV SCH ×2 (09:30)
[2020-05-23] MEDS: DOXYCYCLINE 100MG TABLET PO SCH ×2 (09:30→21:19)
[2020-05-23] MEDS: ASPIRIN 81 MG TABLET EC PO SCH (09:30)
[2020-05-23] MEDS: ATORVASTATIN 10 MG TABLET PO SCH (09:30)
[2020-05-23 11:15] LABS: ANION GAP 6 mmol/L (5-15); CALCIUM 8.9 mg/dL (8.5-10.1); CHLORIDE 114 mmol/L (98-107); CREATININE 1.45 mg/dL (0.7-1.3)
[2020-05-23] MEDS ORDERED: VANC1VIA3 PO (11:40)
[2020-05-23] MEDS ORDERED: DOXY100T PO (11:40)
[2020-05-23] MEDS ORDERED: CEPH-368 PO (11:40)
[2020-05-23] MEDS: LACTATED RINGERS 1,000 ML IV SCH ×2 (11:54→20:12)
[2020-05-23] MEDS: CEPHALEXIN 500 MG CAPSULE PO SCH ×2 (11:58→21:28)
[2020-05-23 14:42] VITALS: BP 158/93
[2020-05-23 19:19] VITALS: BP 124/92
[2020-05-23] MEDS: INSULIN GLARGINE 100 UNITS/ML, PEN SQ-INSULIN SCH (21:29)
[2020-05-24] MEDS: HEPARIN 5,000 UNITS/ML, 1ML SQ SCH ×3 (01:09→18:06)
[2020-05-24 02:00] VITALS: BP 121/84
[2020-05-24] MEDS: VANCOMYCIN 50 MG/ML ORAL SUSP PO SCH ×3 (05:37→18:07)
[2020-05-24 06:31] LABS: ANION GAP 4 mmol/L (5-15); CHLORIDE 115 mmol/L (98-107)
[2020-05-24 06:33] LABS: CREATININE 1.38 mg/dL (0.7-1.3)
[2020-05-24] MEDS: INSULIN LISPRO 100 UNITS/ML, PEN SQ-INSULIN SCH ×4 (07:00→22:02)
[2020-05-24] MEDS: ATORVASTATIN 10 MG TABLET PO SCH (07:54)
[2020-05-24] MEDS: DOXYCYCLINE 100MG TABLET PO SCH ×2 (07:54→22:03)
[2020-05-24] MEDS: ASPIRIN 81 MG TABLET EC PO SCH (07:54)
[2020-05-24] MEDS: CEPHALEXIN 500 MG CAPSULE PO SCH ×2 (07:54→22:03)
[2020-05-24 08:33] VITALS: BP 99/67
[2020-05-24] MEDS: LACTATED RINGERS 1,000 ML IV SCH ×2 (11:29→18:27)
[2020-05-24 14:01] VITALS: BP 99/71
[2020-05-24] MEDS: INSULIN GLARGINE 100 UNITS/ML, PEN SQ-INSULIN SCH (22:02)
[2020-05-24 22:03] VITALS: BP 145/109
[2020-05-25 00:07] VITALS: BP 123/81
[2020-05-25] MEDS: VANCOMYCIN 50 MG/ML ORAL SUSP PO SCH ×4 (00:09→20:22)
[2020-05-25] MEDS: LACTATED RINGERS 1,000 ML IV SCH (01:48)
[2020-05-25] MEDS: HEPARIN 5,000 UNITS/ML, 1ML SQ SCH ×3 (01:48→20:23)
[2020-05-25 06:09] LABS: ANION GAP 3 mmol/L (5-15); CALCIUM 9.2 mg/dL (8.5-10.1); CHLORIDE 121 mmol/L (98-107); CREATININE 1.28 mg/dL (0.7-1.3)
[2020-05-25 06:49] VITALS: BP 135/96
[2020-05-25] MEDS: INSULIN LISPRO 100 UNITS/ML, PEN SQ-INSULIN SCH ×4 (07:00→20:56)
[2020-05-25] MEDS: ATORVASTATIN 10 MG TABLET PO SCH (07:51)
[2020-05-25] MEDS: ASPIRIN 81 MG TABLET EC PO SCH (07:51)
[2020-05-25] MEDS: DOXYCYCLINE 100MG TABLET PO SCH ×2 (07:51→20:54)
[2020-05-25] MEDS: CEPHALEXIN 500 MG CAPSULE PO SCH ×2 (07:51→20:54)
[2020-05-25 13:06] VITALS: BP 128/89
[2020-05-25 19:36] VITALS: BP 142/89
[2020-05-25] MEDS: INSULIN GLARGINE 100 UNITS/ML, PEN SQ-INSULIN SCH (20:55)
[2020-05-26 01:10] VITALS: BP 122/84
[2020-05-26] MEDS: VANCOMYCIN 50 MG/ML ORAL SUSP PO SCH ×4 (01:35→16:35)
[2020-05-26] MEDS: HEPARIN 5,000 UNITS/ML, 1ML SQ SCH ×3 (03:23→17:56)
[2020-05-26 07:27] VITALS: BP 158/108
[2020-05-26] MEDS: INSULIN LISPRO 100 UNITS/ML, PEN SQ-INSULIN SCH ×3 (07:32→16:32)
[2020-05-26] MEDS: ASPIRIN 81 MG TABLET EC PO SCH (08:32)
[2020-05-26] MEDS: CEPHALEXIN 500 MG CAPSULE PO SCH (08:32)
[2020-05-26] MEDS: ATORVASTATIN 10 MG TABLET PO SCH (08:32)
[2020-05-26] MEDS: DOXYCYCLINE 100MG TABLET PO SCH (08:32)
[2020-05-26 13:05] VITALS: BP 129/92
== END 2020-05-26 18:07 | disposition home or self-care (01) | DRG 853 ==
LOC: ED 21:16 → EDIP 22:21 → 5SO 23:35 → 3N 05-16 22:30
PROVIDERS: ADMIT Internal Medicine; ATTEND Internal Medicine
PROC: 0J9P0ZZ Drainage of Left Lower Leg Subcutaneous Tissue and Fascia, Open Approach (ICD-10-PCS; principal; 2020-05-15 14:30)
DX: A41.01 Sepsis due to Methicillin susceptible Staphylococcus aureus (principal); N17.0 Acute kidney failure with tubular necrosis; R65.21 Severe sepsis with septic shock; A04.72 Enterocolitis due to Clostridium difficile, not specified as recurrent; L02.415 Cutaneous abscess of right lower limb; L02.416 Cutaneous abscess of left lower limb; L03.115 Cellulitis of right lower limb; L03.116 Cellulitis of left lower limb; T87.44 Infection of amputation stump, left lower extremity; D63.8 Anemia in other chronic diseases classified elsewhere; E11.65 Type 2 diabetes mellitus with hyperglycemia; E78.5 Hyperlipidemia, unspecified; E87.6 Hypokalemia; N40.0 Benign prostatic hyperplasia without lower urinary tract symptoms; Y83.5 Amputation of limb(s) as the cause of abnormal reaction of the patient, or of later complication, without mention of misadventure at the time of the procedure; Z79.4 Long term (current) use of insulin; Z91.19 Patient's noncompliance with other medical treatment and regimen; Z03.818 Encounter for observation for suspected exposure to other biological agents ruled out
CPT/HCPCS: 36415; 73590; 96374; 99285; J3370; 71045; 80048; 80053; 81001; 82550; 82962; 83036; 83605; 83735; 84100; 85025; 85651; 86140; 87040; 87070; 87075; 87077; 87086; 87147; 87186; 87205; 87324; 87493; 87635; G0378; J0690; J0696; J1644; J2405; J2704; J3010; A9575; J0295; J0360; J1815; J2765; J7030; J7050; J7120

== ENCOUNTER 2020-09-17 20:08 | Inpatient (IN) | payer SELFPAY ==
[~2020-09-17] VITALS: Ht 172.7 cm; Wt 76.4 kg
[~2020-09-17 20:08] MED LIST changes: +ASPI-1027 PO; +ATOR10TA9 PO; +CEPH-368 PO; +DOXY100T PO; +INSU100I28 SQ; +METF850T10 PO; +VANC1VIA3 PO
--- NOTE | 2020-09-17 20:22 | NUR ---
INITIAL PT CONTACT. PT PRESENTS TO ED C/O SORE THROAT, "LUNG PAIN", BODY ACHES AND COUGH. SYMPTOMS BEGAN YESTERDAY. SON CURRENTLY + FOR COVID. PT SITTING UPRIGHT ON GURNEY, VSSterling. PT ANXIOUS UPON ENTRY TO ROOM. CONTINUOUS PULSE OX AND CARDIAC MONITORING IN PLACE. CALL LIGHT AND PERSONAL BELONGINGS WITHIN REACH.
[2020-09-17] MEDS ORDERED: DEXAMETHASONE 4 MG/ML, 5ML ONE (20:51)
[2020-09-17] MEDS ORDERED: ACETAMINOPHEN 325 MG TABLET ONE (20:51)
[2020-09-17] MEDS ORDERED: ALBUTEROL/IPRATROPIUM 2.5MG/0.5MG, 3 ML ONE (20:51)
[2020-09-17] MEDS ORDERED: SODIUM CHLORIDE 0.9% 1,000ML IVBOLUS ONE (21:00)
[2020-09-17] MEDS ORDERED: SODIUM CHLORIDE FLUSH 10ML SYR IVF ONE (21:00)
[2020-09-17] MEDS ORDERED: ALBUTEROL/IPRATROPIUM 2.5MG/0.5MG, 3 ML NPPB ONE (21:00)
[2020-09-17] MEDS ORDERED: DEXAMETHASONE 4 MG/ML, 1ML IVPush ONE (21:00)
[2020-09-17] MEDS ORDERED: ACETAMINOPHEN 325 MG TABLET PO ONE (21:00)
[2020-09-17 21:18] LABS: BASOPHILS % (AUTO) 0 % (0-1); EOSINOPHILS % (AUTO) 1 % (1-7); LYMPHOCYTES % (AUTO) 25 % (22-44); MD NO; MEAN CORPUSCULAR HEMOGLOBIN 29.1 pg (27.5-34.5); MEAN CORPUSCULAR HGB CONC 33.3 g/dL (33.2-36.2); MEAN PLATELET VOLUME 9.1 fL (7.4-10.4); MONOCYTES % (AUTO) 6 % (2-9); NEUTROPHILS % (AUTO) 68 % (42-75); PLATELET COUNT 213 x10^3/uL (130-400); RED BLOOD COUNT 3.54 x10^6/uL (4.38-5.82)
[2020-09-17 21:22] LABS: ALANINE AMINOTRANSFERASE 42 U/L (12-78); ALBUMIN 2.6 g/dL (3.4-5.0); ANION GAP 4 mmol/L (5-15); CALCIUM 8.4 mg/dL (8.5-10.1); CHLORIDE 110 mmol/L (98-107); CREATININE 1.87 mg/dL (0.7-1.3)
[2020-09-17] MEDS ORDERED: LORazepam 2 MG/ML, 1ML ONE (21:22)
[2020-09-17 21:24] LABS: ALKALINE PHOSPHATASE 134 U/L (45-117); BILIRUBIN,TOTAL 0.2 mg/dL (0.2-1.0); TOTAL PROTEIN 7.4 g/dL (6.4-8.2)
[2020-09-17] MEDS ORDERED: LORazepam 2 MG/ML, 1ML IVPush ONE (21:30)
--- NOTE | 2020-09-17 21:45 | NUR ---
PT CALM AND COOPERATIVE WITH STAFF. UPON ENTRY TO ROOM PT NOTED TO HAVE O2 SAT 88%, SUPPLEMENTAL O2 APPLIED 2L VIA NASAL CANNULA. PT TOLERATED WELL.
[2020-09-17] MEDS ORDERED: IBUPROFEN 200 MG TABLET ONE (21:51)
[2020-09-17] MEDS ORDERED: IBUPROFEN 200 MG TABLET PO ONE (22:00)
--- NOTE | 2020-09-17 22:42 | NUR ---
HOSPITALIST AT BEDSIDE
[2020-09-17] MEDS ORDERED: PHARMACY MAY ADJ FOR RENAL FX MC PRN (23:00)
[2020-09-17] MEDS ORDERED: ONDANSETRON 2MG/ML, 2ML IVPush PRN (23:00)
[2020-09-17] MEDS ORDERED: ACETAMINOPHEN 325 MG TABLET PO PRN (23:00)
[2020-09-17] MEDS ORDERED: MELATONIN 5 MG TABLET PO SCH (23:00)
--- NOTE | 2020-09-17 23:14 | NUR ---
PT SITTING UPRIGHT ON GURNEY, RESTING COMFORTABLY WITH EYES CLOSED, NAD, VSS. PT DENIES ANY NEEDS AT THIS TIME. CALL LIGHT AND PERSONAL BELONGINGS WITHIN REACH. ISOLATION PRECAUTIONS IN PLACE.
[2020-09-17] MEDS ORDERED: MELATONIN 5 MG TABLET ONE (23:27)
[2020-09-17] MEDS ORDERED: INSULIN LISPRO 100 UNITS/ML, PEN ONE (23:27)
[2020-09-17] MEDS ORDERED: ASCORBIC ACID 500 MG TABLET ONE (23:27)
[2020-09-17] MEDS ORDERED: ENOXAPARIN 40 MG/0.4 ML ONE (23:27)
[2020-09-17 23:32] LABS: TROPONIN I < 0.015 ng/mL (0.000-0.045)
[2020-09-17] MEDS: ENOXAPARIN 40 MG/0.4 ML SQ SCH (23:34)
[2020-09-17] MEDS: INSULIN LISPRO 100 UNITS/ML, PEN SQ-INSULIN SCH (23:35)
[2020-09-17] MEDS: ASCORBIC ACID 500 MG TABLET PO SCH (23:35)
[2020-09-18] MEDS ORDERED: CEFTRIAXONE PMX 1GM/50ML 50 ML ONE (00:16)
[2020-09-18] MEDS: CEFTRIAXONE PMX 1GM/50ML 50 ML IV SCH (00:23)
[2020-09-18] MEDS ORDERED: AZITHROMYCIN 500 MG in SODIUM CHLORIDE 0.9% 250 ML IV SCH (00:30)
[2020-09-18 00:44] LABS: RAPID INFLUENZA A Negative (Negative); RAPID INFLUENZA B Negative (Negative)
--- NOTE | 2020-09-18 01:00 | NUR ---
PT RESTING COMFORTABLY ON GURNEY WITH EYES CLOSED. NAD, VSS. PT DENIES ANY NEEDS AT THIS TIME. MEDICATED PER EMAR.
--- NOTE | 2020-09-18 02:24 | NUR ---
PT REFUSED TRANSFER TO HOSPITAL BED AT THIS TIME. "I JUST WANT TO SLEEP, I AM FINE HOW I AM". NO ADDITIONAL NEEDS AT THIS TIME. CALL LIGHT AND PERSONAL BELONGINGS WITHIN REACH. ISOLATION PRECAUTIONS IN PLACE.
--- NOTE | 2020-09-18 02:54 | NUR ---
BREAK RN. PT SLEEPING, DENIES NEEDS AT THIS TIME. CALL LIGHT WITHIN REACH.
--- NOTE | 2020-09-18 04:00 | NUR ---
PT RESTING COMFORTABLY ON GURNEY WITH EYES CLOSED. NAD, VSS. PT DENIES ANY NEEDS AT THIS TIME. MEDICATED PER EMAR.
--- NOTE | 2020-09-18 05:40 | NUR ---
Pt to be admitted to [facility], room 347. Report called to
[2020-09-18 06:05] VITALS: BP_SYST 153; BP_SYST 172; BP_DIAS 118; BP_DIAS 78
[2020-09-18] MEDS: LABETALOL 5MG/ML, 20ML IVPush PRN ×2 (06:37→15:13)
[2020-09-18] MEDS ORDERED: ZINC SULFATE 220 MG CAPSULE PO SCH (09:00)
[2020-09-18] MEDS: INSULIN LISPRO 100 UNITS/ML, PEN SQ-INSULIN SCH ×4 (09:07→20:56)
[2020-09-18] MEDS: DEXAMETHASONE 4 MG/ML, 1ML IVPush SCH (09:09)
[2020-09-18] MEDS: ASCORBIC ACID 500 MG TABLET PO SCH ×2 (09:10→16:03)
[2020-09-18] MEDS: THIAMINE 100MG TABLET PO SCH ×2 (09:10→20:49)
[2020-09-18] MEDS: ZINC SULFATE 220 MG CAPSULE PO SCH (09:10)
[2020-09-18] MEDS: CHOLECALCIFEROL 5,000u TAB PO SCH (09:10)
[2020-09-18 09:24] VITALS: BP 141/85
[2020-09-18] MEDS ORDERED: INSULIN GLARGINE 100 UNITS/ML, PEN SQ-INSULIN SCH (12:30)
[2020-09-18] MEDS: INSULIN GLARGINE 100 UNITS/ML, PEN SQ-INSULIN SCH (13:01)
[2020-09-18 15:08] VITALS: BP 166/108
[2020-09-18 15:56] VITALS: BP 156/89
[2020-09-18 19:09] VITALS: BP 139/85
[2020-09-18] MEDS ORDERED: ATORVASTATIN 10 MG TABLET PO SCH (21:00)
[2020-09-18] MEDS ORDERED: MELATONIN 5 MG TABLET PO SCH (21:00)
[2020-09-19] MEDS: ENOXAPARIN 40 MG/0.4 ML SQ SCH (00:12)
[2020-09-19] MEDS: CEFTRIAXONE PMX 1GM/50ML 50 ML IV SCH (00:12)
[2020-09-19 01:00] VITALS: BP 137/94
[2020-09-19 06:03] LABS: BASOPHILS % (AUTO) 0 % (0-1); EOSINOPHILS % (AUTO) 0 % (1-7); LYMPHOCYTES % (AUTO) 19 % (22-44); MEAN CORPUSCULAR HEMOGLOBIN 29.3 pg (27.5-34.5); MEAN CORPUSCULAR HGB CONC 33.7 g/dL (33.2-36.2); MEAN PLATELET VOLUME 8.8 fL (7.4-10.4); MONOCYTES % (AUTO) 3 % (2-9); NEUTROPHILS % (AUTO) 78 % (42-75); PLATELET COUNT 211 x10^3/uL (130-400); RED BLOOD COUNT 3.56 x10^6/uL (4.38-5.82); RED CELL DISTRIBUTION WIDTH 15.6 % (9.4-14.8)
[2020-09-19 06:15] LABS: MD NO
[2020-09-19 06:16] LABS: ALANINE AMINOTRANSFERASE 29 U/L (12-78); ALBUMIN 2.3 g/dL (3.4-5.0); ANION GAP 5 mmol/L (5-15); CALCIUM 8.9 mg/dL (8.5-10.1); CHLORIDE 112 mmol/L (98-107)
[2020-09-19 06:26] LABS: CREATININE 1.83 mg/dL (0.7-1.3)
[2020-09-19 06:27] LABS: ALKALINE PHOSPHATASE 113 U/L (45-117); BILIRUBIN,TOTAL 0.2 mg/dL (0.2-1.0); TOTAL PROTEIN 7.1 g/dL (6.4-8.2)
[2020-09-19] MEDS: INSULIN LISPRO 100 UNITS/ML, PEN SQ-INSULIN SCH ×2 (07:40→11:11)
[2020-09-19] MEDS: ASCORBIC ACID 500 MG TABLET PO SCH (07:40)
[2020-09-19] MEDS ORDERED: ATORVASTATIN 10 MG TABLET PO SCH (09:00)
[2020-09-19] MEDS ORDERED: AZITHROMYCIN 500 MG TABLET PO SCH (09:00)
[2020-09-19 09:30] VITALS: BP 160/102
[2020-09-19] MEDS: ZINC SULFATE 220 MG CAPSULE PO SCH (09:32)
[2020-09-19] MEDS: CHOLECALCIFEROL 5,000u TAB PO SCH (09:33)
[2020-09-19] MEDS: THIAMINE 100MG TABLET PO SCH (09:33)
[2020-09-19] MEDS: DEXAMETHASONE 4 MG/ML, 1ML IVPush SCH (09:33)
[2020-09-19] MEDS: INSULIN GLARGINE 100 UNITS/ML, PEN SQ-INSULIN SCH (09:51)
[2020-09-19] MEDS ORDERED: CHOL10003 PO (09:54)
[2020-09-19] MEDS ORDERED: ZINC220C7 PO (09:54)
[2020-09-19] MEDS ORDERED: ASCO500T9 PO (09:54)
[2020-09-19] MEDS ORDERED: PRED20TA PO (09:54)
[2020-09-19 14:30] VITALS: BP 144/91
== END 2020-09-19 15:56 | disposition home or self-care (01) | DRG 871 ==
LOC: ED 21:54 → EDIP 23:46 → 3N 09-18 05:59
PROVIDERS: ADMIT Family Medicine; ATTEND Family Medicine
DX: A41.89 Other specified sepsis (principal); U07.1 COVID-19; J12.89 Other viral pneumonia; J96.01 Acute respiratory failure with hypoxia; N17.0 Acute kidney failure with tubular necrosis; E11.65 Type 2 diabetes mellitus with hyperglycemia; E78.5 Hyperlipidemia, unspecified; J06.9 Acute upper respiratory infection, unspecified; D64.9 Anemia, unspecified; T38.0X5A Adverse effect of glucocorticoids and synthetic analogues, initial encounter; J40 Bronchitis, not specified as acute or chronic; N40.0 Benign prostatic hyperplasia without lower urinary tract symptoms; E11.22 Type 2 diabetes mellitus with diabetic chronic kidney disease; N18.2 Chronic kidney disease, stage 2 (mild); K52.9 Noninfective gastroenteritis and colitis, unspecified; Z79.4 Long term (current) use of insulin; Z89.512 Acquired absence of left leg below knee; Y92.89 Other specified places as the place of occurrence of the external cause
CPT/HCPCS: 36415; 71045; 80053; 82728; 82947; 82962; 83036; 83605; 83615; 84484; 85025; 85379; 85651; 86140; 87040; 87400; G0378; J0456; J0696; J1100; J1650; J1815; J2060; J7030; J7050; U0003

== ENCOUNTER 2021-04-12 11:53 | Inpatient (IN) | payer OTHER ==
[~2021-04-12] VITALS: Ht 172.7 cm; Wt 79.8 kg
[~2021-04-12 11:53] MED LIST changes: +ASCO500T9 PO; +CHOL10003 PO; +PRED20TA PO; -VANC1VIA3 PO; +VANC1VIA36 PO; +ZINC220C7 PO
--- NOTE | 2021-04-12 14:08 | NUR ---
wastewater operator: Pt to room via WC from lobby at this time.
[2021-04-12] MEDS ORDERED: ONDANSETRON 2MG/ML, 2ML IVPush ONE (15:00)
[2021-04-12] MEDS ORDERED: SODIUM CHLORIDE 0.9% 1,000ML IVBOLUS ONE ×2 (15:00→17:30)
[2021-04-12] MEDS ORDERED: MORPHINE SULFATE 4 MG/ML, 1ML IVPush PRN (15:00)
[2021-04-12] MEDS ORDERED: MORPHINE SULFATE 4 MG/ML, 1ML ONE (15:06)
[2021-04-12] MEDS ORDERED: ONDANSETRON 2MG/ML, 2ML ONE (15:06)
--- NOTE | 2021-04-12 15:33 | NUR ---
PT CAME IN CO LEFT LEG PAIN. PT HAS LBKA. ON AREA OF AMPUTATION THERE IS REDNESS, SWELLING AND DRAINAGE X 3 DAYS. PT HAS DMII. PT MEDICATED PER NOV. IV FLUIDS INFUSING
[2021-04-12 15:36] LABS: ALANINE AMINOTRANSFERASE 9 U/L (12-78); ALBUMIN 2.2 g/dL (3.4-5.0); ANION GAP 5 mmol/L (5-15); CALCIUM 8.8 mg/dL (8.5-10.1); CHLORIDE 116 mmol/L (98-107); CREATININE 2.41 mg/dL (0.7-1.3)
[2021-04-12 15:38] LABS: BASOPHILS % (AUTO) 0 % (0-1); EOSINOPHILS % (AUTO) 0 % (1-7); LYMPHOCYTES % (AUTO) 9 % (22-44); MEAN CORPUSCULAR HEMOGLOBIN 27.7 pg (27.5-34.5); MEAN CORPUSCULAR HGB CONC 32.6 g/dL (33.2-36.2); MEAN PLATELET VOLUME 7.8 fL (7.4-10.4); MONOCYTES % (AUTO) 5 % (2-9); NEUTROPHILS % (AUTO) 85 % (42-75); PLATELET COUNT 424 x10^3/uL (130-400); RED BLOOD COUNT 3.37 x10^6/uL (4.38-5.82); RED CELL DISTRIBUTION WIDTH 17.7 % (9.4-14.8)
[2021-04-12 15:43] LABS: ALKALINE PHOSPHATASE 112 U/L (45-117); BILIRUBIN,TOTAL 0.3 mg/dL (0.2-1.0); HCT (SEDRATE) 28.6 % (39.2-51.8); TOTAL PROTEIN 7.8 g/dL (6.4-8.2)
[2021-04-12 15:59] LABS: C-REACTIVE PROTEIN, QUANT > 19.00 mg/dL (0.02-0.49)
--- NOTE | 2021-04-12 17:29 | NUR ---
PT MEDICATED PER MAR
[2021-04-12] MEDS ORDERED: PIPERACILLIN/TAZO 3.375 GM in DEXTROSE 5% 50 ML IVPB ONE (17:30)
[2021-04-12] MEDS ORDERED: VANCOMYCIN PER PHARMACY MC PRN ×2 (17:30→18:30)
[2021-04-12] MEDS ORDERED: VANCOMYCIN 1,900 MG in SODIUM CHLORIDE 0.9% 250 ML IV ONE (17:30)
[2021-04-12] MEDS ORDERED: ONDANSETRON ODT 4 MG PO PRN (18:30)
[2021-04-12] MEDS ORDERED: morphine SULFATE 10 MG/ML, 1ML IVPush PRN (18:30)
[2021-04-12] MEDS ORDERED: ONDANSETRON 2MG/ML, 2ML IVPush PRN (18:30)
[2021-04-12] MEDS ORDERED: DEXTROSE 4 GM TAB.CHEW PO PRN (18:30)
[2021-04-12] MEDS ORDERED: HYDROcodone/APAP 5/325 TABLET PO PRN (18:30)
[2021-04-12] MEDS ORDERED: BISACODYL 10 MG SUPP PR PRN (18:30)
[2021-04-12] MEDS ORDERED: PHARMACY MAY ADJ FOR RENAL FX MC PRN (18:30)
[2021-04-12] MEDS ORDERED: DOCUSATE 100 MG CAPSULE PO PRN (18:30)
[2021-04-12] MEDS ORDERED: DEXTROSE 50%, 50ML SYRINGE IVPush PRN (18:30)
[2021-04-12] MEDS ORDERED: POLYETHYLENE GLYCOL 17 GM PACKET PO PRN (18:30)
[2021-04-12] MEDS ORDERED: GLUCAGON 1 MG IM PRN (18:30)
[2021-04-12] MEDS ORDERED: PHARMACOKINETIC MONITORING MC PRN (19:00)
[2021-04-12] MEDS ORDERED: PHARMACOKINETIC CONSULTATION MC ONE (19:00)
[2021-04-12] MEDS: INSULIN LISPRO 100 UNITS/ML, PEN SQ-INSULIN SCH (20:45)
[2021-04-12] MEDS: CEFEPIME 2 GM in DEXTROSE 5% 100 ML IV SCH (20:46)
[2021-04-12] MEDS: SODIUM CHLORIDE FLUSH 10ML SYR IVF SCH (20:46)
[2021-04-12] MEDS: SODIUM CHLORIDE 0.9% 1,000 ML IV SCH (20:46)
[2021-04-12 20:55] VITALS: BP 102/70
[2021-04-13 02:53] VITALS: BP 132/87
[2021-04-13] MEDS: INSULIN LISPRO 100 UNITS/ML, PEN SQ-INSULIN SCH ×4 (05:00→20:19)
[2021-04-13] MEDS: SODIUM CHLORIDE 0.9% 1,000 ML IV SCH ×3 (05:12→20:19)
[2021-04-13 05:27] VITALS: BP 102/70
[2021-04-13 06:01] LABS: BASOPHILS % (AUTO) 0 % (0-1); EOSINOPHILS % (AUTO) 2 % (1-7); LYMPHOCYTES % (AUTO) 15 % (22-44); MEAN CORPUSCULAR HEMOGLOBIN 27.7 pg (27.5-34.5); MEAN CORPUSCULAR HGB CONC 32.5 g/dL (33.2-36.2); MEAN PLATELET VOLUME 7.5 fL (7.4-10.4); MONOCYTES % (AUTO) 6 % (2-9); NEUTROPHILS % (AUTO) 77 % (42-75); PLATELET COUNT 355 x10^3/uL (130-400); RED BLOOD COUNT 2.94 x10^6/uL (4.38-5.82); RED CELL DISTRIBUTION WIDTH 17.9 % (9.4-14.8)
[2021-04-13 06:17] LABS: CHLORIDE 118 mmol/L (98-107)
[2021-04-13 06:22] LABS: ANION GAP 5 mmol/L (5-15); CALCIUM 8.1 mg/dL (8.5-10.1); CREATININE 1.93 mg/dL (0.7-1.3)
[2021-04-13 06:46] VITALS: BP 151/95
[2021-04-13] MEDS: SODIUM CHLORIDE FLUSH 10ML SYR IVF SCH ×2 (09:00→20:19)
[2021-04-13] MEDS: CEFEPIME 2 GM in DEXTROSE 5% 100 ML IV SCH ×2 (09:08→20:19)
[2021-04-13] MEDS ORDERED: CHLORHEXIDINE 15 ML UDC ONE ×2 (10:31→11:05)
[2021-04-13] MEDS ORDERED: CHLORHEXIDINE 15 ML UDC PO ONE (11:30)
[2021-04-13] MEDS ORDERED: FENTANYL PF 250 MCG/5ML ONE (12:20)
[2021-04-13] MEDS ORDERED: MIDAZOLAM 1 MG/ML, 2ML ONE (12:20)
[2021-04-13] MEDS ORDERED: PROPOFOL 10 MG/ML, 20ML ONE (12:24)
[2021-04-13] MEDS ORDERED: ROCURONIUM 10MG/ML,5ML ONE (12:24)
[2021-04-13] MEDS ORDERED: GLYCOPYRROLATE 0.2MG/1ML, 5ML ONE (12:24)
[2021-04-13] MEDS ORDERED: NEOSTIGMINE 1 MG/ML, 10ML ONE (12:24)
[2021-04-13] MEDS ORDERED: SUCCINYLCHOLINE 20 MG/ML, 10ML ONE (12:24)
[2021-04-13] MEDS ORDERED: DEXAMETHASONE 4 MG/ML, 1ML ONE (12:24)
[2021-04-13] MEDS ORDERED: ONDANSETRON 2MG/ML, 2ML ONE (12:24)
[2021-04-13] MEDS ORDERED: CEFAZOLIN 1,000 MG ONE (12:24)
[2021-04-13 14:30] VITALS: BP 154/72
[2021-04-13] MEDS ORDERED: KETAMINE 10 MG/ML, 20ML ONE (14:51)
[2021-04-13] MEDS: VANCOMYCIN 1,500 MG in SODIUM CHLORIDE 0.9% 250 ML IV SCH (15:49)
[2021-04-13] MEDS ORDERED: GADOTERATE 7.5 MMOL/15ML SYR ONE (17:36)
[2021-04-13 19:24] VITALS: BP 121/85
[2021-04-14 01:31] VITALS: BP 120/80
[2021-04-14] MEDS: SODIUM CHLORIDE 0.9% 1,000 ML IV SCH ×3 (04:44→23:01)
[2021-04-14 06:03] LABS: BASOPHILS % (AUTO) 1 % (0-1); EOSINOPHILS % (AUTO) 4 % (1-7); LYMPHOCYTES % (AUTO) 21 % (22-44); MEAN CORPUSCULAR HEMOGLOBIN 27.6 pg (27.5-34.5); MEAN CORPUSCULAR HGB CONC 32.3 g/dL (33.2-36.2); MEAN PLATELET VOLUME 7.1 fL (7.4-10.4); MONOCYTES % (AUTO) 6 % (2-9); NEUTROPHILS % (AUTO) 68 % (42-75); PLATELET COUNT 387 x10^3/uL (130-400); RED BLOOD COUNT 2.87 x10^6/uL (4.38-5.82); RED CELL DISTRIBUTION WIDTH 17.6 % (9.4-14.8)
[2021-04-14 08:13] VITALS: BP 149/90
[2021-04-14] MEDS: INSULIN LISPRO 100 UNITS/ML, PEN SQ-INSULIN SCH ×4 (08:18→20:27)
[2021-04-14] MEDS: CEFEPIME 2 GM in DEXTROSE 5% 100 ML IV SCH ×2 (08:29→20:25)
[2021-04-14] MEDS: SODIUM CHLORIDE FLUSH 10ML SYR IVF SCH ×2 (08:30→20:25)
[2021-04-14 14:31] VITALS: BP 126/87
[2021-04-14] MEDS: VANCOMYCIN 1,500 MG in SODIUM CHLORIDE 0.9% 250 ML IV SCH (15:07)
[2021-04-14 18:28] VITALS: BP 145/89
[2021-04-15 00:30] VITALS: BP 172/101
[2021-04-15] MEDS: hydrALAzine 20 MG/ML, 1ML IVPush PRN ×2 (01:20→16:04)
[2021-04-15 01:48] VITALS: BP 149/84
[2021-04-15 07:33] VITALS: BP 125/75
[2021-04-15] MEDS: INSULIN LISPRO 100 UNITS/ML, PEN SQ-INSULIN SCH ×4 (07:49→20:29)
[2021-04-15] MEDS: CEFEPIME 2 GM in DEXTROSE 5% 100 ML IV SCH ×2 (07:49→20:20)
[2021-04-15] MEDS: SODIUM CHLORIDE 0.9% 1,000 ML IV SCH ×2 (08:00→16:07)
[2021-04-15] MEDS: SODIUM CHLORIDE FLUSH 10ML SYR IVF SCH ×2 (08:00→20:29)
[2021-04-15 08:49] LABS: BASOPHILS % (AUTO) 1 % (0-1); EOSINOPHILS % (AUTO) 6 % (1-7); LYMPHOCYTES % (AUTO) 28 % (22-44); MEAN CORPUSCULAR HEMOGLOBIN 27.9 pg (27.5-34.5); MEAN CORPUSCULAR HGB CONC 32.9 g/dL (33.2-36.2); MEAN PLATELET VOLUME 7.3 fL (7.4-10.4); MONOCYTES % (AUTO) 7 % (2-9); NEUTROPHILS % (AUTO) 58 % (42-75); PLATELET COUNT 482 x10^3/uL (130-400); RED BLOOD COUNT 3.27 x10^6/uL (4.38-5.82)
[2021-04-15 08:50] LABS: ALANINE AMINOTRANSFERASE 8 U/L (12-78); ALBUMIN 1.8 g/dL (3.4-5.0); ANION GAP 7 mmol/L (5-15); CALCIUM 8.4 mg/dL (8.5-10.1); CHLORIDE 119 mmol/L (98-107); CREATININE 1.76 mg/dL (0.7-1.3)
[2021-04-15 08:53] LABS: ALKALINE PHOSPHATASE 96 U/L (45-117); BILIRUBIN,TOTAL 0.2 mg/dL (0.2-1.0); TOTAL PROTEIN 7.1 g/dL (6.4-8.2)
[2021-04-15] MEDS: VANCOMYCIN 1,500 MG in SODIUM CHLORIDE 0.9% 250 ML IV SCH (14:41)
[2021-04-15 15:15] VITALS: BP 171/90
[2021-04-15 18:43] VITALS: BP 116/79
[2021-04-15 19:11] VITALS: BP 114/76
[2021-04-15] MEDS: ENALAPRIL 2.5MG TABLET PO SCH (20:20)
[2021-04-16 01:24] VITALS: BP 118/76
[2021-04-16] MEDS: SODIUM CHLORIDE 0.9% 1,000 ML IV SCH (01:30)
[2021-04-16 05:18] LABS: BASOPHILS % (AUTO) 1 % (0-1); EOSINOPHILS % (AUTO) 6 % (1-7); LYMPHOCYTES % (AUTO) 30 % (22-44); MEAN CORPUSCULAR HEMOGLOBIN 28.7 pg (27.5-34.5); MEAN CORPUSCULAR HGB CONC 33.8 g/dL (33.2-36.2); MONOCYTES % (AUTO) 7 % (2-9); NEUTROPHILS % (AUTO) 56 % (42-75); PLATELET COUNT 499 x10^3/uL (130-400); RED BLOOD COUNT 3.01 x10^6/uL (4.38-5.82); RED CELL DISTRIBUTION WIDTH 17.6 % (9.4-14.8)
[2021-04-16 05:38] LABS: ANION GAP 9 mmol/L (5-15); CALCIUM 8.2 mg/dL (8.5-10.1); CHLORIDE 119 mmol/L (98-107); CREATININE 1.86 mg/dL (0.7-1.3)
[2021-04-16 07:45] VITALS: BP 147/88
[2021-04-16] MEDS: INSULIN LISPRO 100 UNITS/ML, PEN SQ-INSULIN SCH ×4 (07:52→20:31)
[2021-04-16] MEDS: CEFEPIME 2 GM in DEXTROSE 5% 100 ML IV SCH ×2 (09:00→20:36)
[2021-04-16] MEDS: ENALAPRIL 2.5MG TABLET PO SCH ×2 (09:00→20:36)
[2021-04-16] MEDS: SODIUM CHLORIDE FLUSH 10ML SYR IVF SCH ×2 (09:00→20:37)
[2021-04-16] MEDS ORDERED: CHLORHEXIDINE 15 ML UDC ONE (12:04)
[2021-04-16] MEDS ORDERED: FENTANYL PF 250 MCG/5ML ONE (12:05)
[2021-04-16] MEDS ORDERED: MIDAZOLAM 1 MG/ML, 2ML ONE (12:05)
[2021-04-16] MEDS ORDERED: PROPOFOL 10 MG/ML, 20ML ONE (12:06)
[2021-04-16] MEDS ORDERED: LABETALOL 5MG/ML, 20ML IV PRN (12:30)
[2021-04-16] MEDS ORDERED: ONDANSETRON 2MG/ML, 2ML IVPush PRN (12:30)
[2021-04-16] MEDS ORDERED: MEPERIDINE/PF 25MG/0.5ML IVPush PRN (12:30)
[2021-04-16] MEDS ORDERED: hydrALAzine 20 MG/ML, 1ML IV PRN (12:30)
[2021-04-16] MEDS ORDERED: HYDROmorphone 1 MG/ML, 1ML INJ IVPush PRN (12:30)
[2021-04-16] MEDS ORDERED: OXYcodone 5 MG/5 ML ORAL.SOL UDC PO PRN (12:30)
[2021-04-16] MEDS ORDERED: morphine SULFATE 10 MG/ML, 1ML IVPush PRN (12:30)
[2021-04-16] MEDS ORDERED: FENTANYL PF 100 MCG/2ML ONE (14:07)
[2021-04-16] MEDS ORDERED: OXYcodone 5 MG/5 ML ORAL.SOL UDC ONE (14:07)
[2021-04-16] MEDS ORDERED: ONDANSETRON 2MG/ML, 2ML ONE (14:09)
[2021-04-16] MEDS: FENTANYL PF 100 MCG/2ML IV PRN ×2 (14:10→14:15)
[2021-04-16] MEDS ORDERED: hydrALAzine 20 MG/ML, 1ML ONE (14:34)
[2021-04-16 14:54] VITALS: BP 120/77
[2021-04-16 20:34] VITALS: BP 130/75
[2021-04-17 01:17] VITALS: BP 112/72
[2021-04-17] MEDS ORDERED: VANCOMYCIN 1,500 MG in SODIUM CHLORIDE 0.9% 250 ML IV SCH (02:30)
[2021-04-17] MEDS: INSULIN LISPRO 100 UNITS/ML, PEN SQ-INSULIN SCH ×4 (07:00→21:03)
[2021-04-17 08:03] VITALS: BP 125/81
[2021-04-17] MEDS: CEFEPIME 2 GM in DEXTROSE 5% 100 ML IV SCH (08:41)
[2021-04-17] MEDS: ENALAPRIL 2.5MG TABLET PO SCH ×2 (08:42→23:19)
[2021-04-17] MEDS: SODIUM CHLORIDE FLUSH 10ML SYR IVF SCH ×2 (08:42→21:02)
[2021-04-17 11:50] LABS: CREATININE 1.83 mg/dL (0.7-1.3)
[2021-04-17 12:04] LABS: ANION GAP 3 mmol/L (5-15)
[2021-04-17 12:05] LABS: CHLORIDE 119 mmol/L (98-107)
[2021-04-17 13:02] VITALS: BP 131/79
[2021-04-17] MEDS: ACETAMINOPHEN 325 MG TABLET PO PRN (14:50)
[2021-04-17] MEDS: HEPARIN 5,000 UNITS/ML, 1ML SQ SCH (18:26)
[2021-04-17] MEDS ORDERED: PHARMACY MAY ADJ FOR RENAL FX MC PRN (18:30)
[2021-04-17 19:55] VITALS: BP 161/93
[2021-04-17] MEDS ORDERED: ENALAPRIL 5MG TABLET ONE (20:52)
[2021-04-17] MEDS: PIPERACILLIN/TAZO 3.375 GM in DEXTROSE 5% 50 ML IV SCH (21:02)
[2021-04-18 01:00] VITALS: BP 157/91
[2021-04-18] MEDS: PIPERACILLIN/TAZO 3.375 GM in DEXTROSE 5% 50 ML IV SCH ×4 (03:30→20:53)
[2021-04-18] MEDS: HEPARIN 5,000 UNITS/ML, 1ML SQ SCH ×2 (06:18→17:59)
[2021-04-18 06:22] LABS: BASOPHILS % (AUTO) 1 % (0-1); EOSINOPHILS % (AUTO) 5 % (1-7); LYMPHOCYTES % (AUTO) 31 % (22-44); MEAN CORPUSCULAR HEMOGLOBIN 27.7 pg (27.5-34.5); MEAN CORPUSCULAR HGB CONC 33.1 g/dL (33.2-36.2); MEAN PLATELET VOLUME 6.9 fL (7.4-10.4); MONOCYTES % (AUTO) 9 % (2-9); NEUTROPHILS % (AUTO) 55 % (42-75); PLATELET COUNT 451 x10^3/uL (130-400); RED BLOOD COUNT 2.83 x10^6/uL (4.38-5.82); RED CELL DISTRIBUTION WIDTH 17.3 % (9.4-14.8)
[2021-04-18 06:30] LABS: ANION GAP 5 mmol/L (5-15); CHLORIDE 117 mmol/L (98-107); CREATININE 1.85 mg/dL (0.7-1.3)
[2021-04-18 06:53] LABS: ANISOCYTOSIS 1+; OVALOCYTES 1+; POLYCHROMASIA 1+
[2021-04-18 06:54] LABS: <PLATELET ESTIMATE> INCREASED; <PLT MORPHOLOGY> NORMAL PLT MORPH
[2021-04-18] MEDS: INSULIN LISPRO 100 UNITS/ML, PEN SQ-INSULIN SCH ×4 (07:00→20:49)
[2021-04-18 07:16] VITALS: BP 146/85
[2021-04-18] MEDS: ENALAPRIL 2.5MG TABLET PO SCH ×2 (07:56→20:53)
[2021-04-18] MEDS: SODIUM CHLORIDE FLUSH 10ML SYR IVF SCH ×2 (07:56→20:53)
[2021-04-18] MEDS: SODIUM BICARBONATE 650 MG TABLET PO SCH ×2 (11:17→20:52)
[2021-04-18 14:08] VITALS: BP 152/90
[2021-04-18 19:30] VITALS: BP 218/122
[2021-04-18 19:45] VITALS: BP 213/124
[2021-04-18] MEDS: hydrALAzine 20 MG/ML, 1ML IVPush PRN (19:52)
[2021-04-18 20:51] VITALS: BP 121/76
[2021-04-19 03:11] VITALS: BP 160/100
[2021-04-19] MEDS: PIPERACILLIN/TAZO 3.375 GM in DEXTROSE 5% 50 ML IV SCH ×2 (03:11→09:00)
[2021-04-19 04:35] VITALS: BP 178/105
[2021-04-19] MEDS: hydrALAzine 20 MG/ML, 1ML IVPush PRN ×2 (04:39→23:59)
[2021-04-19 05:21] VITALS: BP 155/98
[2021-04-19] MEDS: HEPARIN 5,000 UNITS/ML, 1ML SQ SCH ×2 (06:31→18:38)
[2021-04-19 06:45] LABS: MEAN CORPUSCULAR HEMOGLOBIN 28.2 pg (27.5-34.5); MEAN CORPUSCULAR HGB CONC 33.5 g/dL (33.2-36.2); MEAN PLATELET VOLUME 7.3 fL (7.4-10.4); PLATELET COUNT 472 x10^3/uL (130-400); RED BLOOD COUNT 2.78 x10^6/uL (4.38-5.82); RED CELL DISTRIBUTION WIDTH 17.9 % (9.4-14.8)
[2021-04-19 06:50] LABS: ANION GAP 3 mmol/L (5-15); CALCIUM 8.2 mg/dL (8.5-10.1); CHLORIDE 116 mmol/L (98-107)
[2021-04-19 06:52] LABS: CREATININE 2.07 mg/dL (0.7-1.3)
[2021-04-19] MEDS: INSULIN LISPRO 100 UNITS/ML, PEN SQ-INSULIN SCH ×4 (07:00→21:00)
[2021-04-19 07:26] LABS: BAND#(MANUAL) 0.09 x10^3/uL; BANDS%(MANUAL) 1 % (0-7); EOS#(MANUAL) 0.34 x10^3/uL (0.0-0.4); EOS% (MANUAL) 4 % (1-7); LYMPH#(MANUAL) 2.06 x10^3/uL (1-3.4); LYMPHS% (MANUAL) 24 % (22-44); METAMYELOCYTES# (MANUAL) 0.26 x10^3/uL (0-0); METAMYELOCYTES% (MANUAL) 3 % (0-1); MONOS% (MANUAL) 7 % (2-9); SEG#(MANUAL) 5.25 x10^3/uL (1.8-6.8); SEGS% (MANUAL) 61 % (42-75)
[2021-04-19 07:27] LABS: <PLATELET ESTIMATE> INCREASED; <PLT MORPHOLOGY> NORMAL PLT MORPH; ANISOCYTOSIS 1+; POLYCHROMASIA 1+
[2021-04-19 07:52] VITALS: BP 145/90
[2021-04-19] MEDS: ENALAPRIL 2.5MG TABLET PO SCH ×2 (09:00→21:42)
[2021-04-19] MEDS: SODIUM CHLORIDE FLUSH 10ML SYR IVF SCH ×2 (09:00→21:42)
[2021-04-19] MEDS: SODIUM BICARBONATE 650 MG TABLET PO SCH ×2 (09:00→21:42)
[2021-04-19 14:00] VITALS: BP 150/90
[2021-04-19] MEDS ORDERED: DAPTOMYCIN 500 MG in SODIUM CHLORIDE 0.9% 100 ML IV SCH (14:30)
[2021-04-19 19:48] VITALS: BP 139/87
[2021-04-20] VITALS (8 sets, daily range): BP systolic 128–191; BP diastolic 79–103
[2021-04-20 05:23] LABS: BASOPHILS % (AUTO) 1 % (0-1); EOSINOPHILS % (AUTO) 5 % (1-7); LYMPHOCYTES % (AUTO) 33 % (22-44); MEAN CORPUSCULAR HEMOGLOBIN 28.5 pg (27.5-34.5); MEAN CORPUSCULAR HGB CONC 33.5 g/dL (33.2-36.2); MONOCYTES % (AUTO) 6 % (2-9); NEUTROPHILS % (AUTO) 56 % (42-75); PLATELET COUNT 553 x10^3/uL (130-400); RED BLOOD COUNT 2.78 x10^6/uL (4.38-5.82)
[2021-04-20 05:33] LABS: CHLORIDE 119 mmol/L (98-107)
[2021-04-20 05:45] LABS: ANION GAP 2 mmol/L (5-15); CALCIUM 8.2 mg/dL (8.5-10.1); CREATININE 1.78 mg/dL (0.7-1.3)
[2021-04-20] MEDS: HEPARIN 5,000 UNITS/ML, 1ML SQ SCH ×2 (06:25→17:33)
[2021-04-20] MEDS: INSULIN LISPRO 100 UNITS/ML, PEN SQ-INSULIN SCH ×4 (07:00→20:57)
[2021-04-20 07:01] LABS: HCT (SEDRATE) 23.7 % (39.2-51.8)
[2021-04-20] MEDS: SODIUM CHLORIDE FLUSH 10ML SYR IVF SCH ×2 (09:00→21:01)
[2021-04-20] MEDS: ENALAPRIL 2.5MG TABLET PO SCH ×2 (09:20→21:01)
[2021-04-20] MEDS: SODIUM BICARBONATE 650 MG TABLET PO SCH ×2 (09:20→21:01)
[2021-04-20] MEDS ORDERED: ERTAPENEM 1 GM in SODIUM CHLORIDE 0.9% 50 ML IV SCH (11:30)
[2021-04-20] MEDS: AMPICILLIN/SULBACTAM 3 GM in SODIUM CHLORIDE 0.9% 100 ML IV SCH ×2 (14:53→22:04)
[2021-04-20] MEDS: ACETAMINOPHEN 325 MG TABLET PO PRN (21:01)
[2021-04-20] MEDS: hydrALAzine 20 MG/ML, 1ML IVPush PRN (21:32)
[2021-04-20] MEDS: LABETALOL 5MG/ML, 20ML IVPush PRN (22:29)
[2021-04-21 00:30] VITALS: BP 137/84
[2021-04-21] MEDS: AMPICILLIN/SULBACTAM 3 GM in SODIUM CHLORIDE 0.9% 100 ML IV SCH ×3 (06:13→22:17)
[2021-04-21] MEDS: HEPARIN 5,000 UNITS/ML, 1ML SQ SCH ×2 (06:13→18:06)
[2021-04-21 06:52] VITALS: BP 168/95
[2021-04-21] MEDS: INSULIN LISPRO 100 UNITS/ML, PEN SQ-INSULIN SCH ×4 (07:00→20:47)
[2021-04-21] MEDS: SODIUM CHLORIDE FLUSH 10ML SYR IVF SCH ×2 (08:46→20:46)
[2021-04-21] MEDS: SODIUM BICARBONATE 650 MG TABLET PO SCH ×2 (08:46→20:46)
[2021-04-21] MEDS: ENALAPRIL 2.5MG TABLET PO SCH ×2 (08:46→20:46)
[2021-04-21 12:27] VITALS: BP 127/89
[2021-04-21 18:47] VITALS: BP 155/101
[2021-04-22] MEDS: LABETALOL 5MG/ML, 20ML IVPush PRN (01:12)
[2021-04-22 01:13] VITALS: BP 183/104
[2021-04-22 02:13] VITALS: BP 150/89
[2021-04-22] MEDS: AMPICILLIN/SULBACTAM 3 GM in SODIUM CHLORIDE 0.9% 100 ML IV SCH ×3 (06:15→22:06)
[2021-04-22] MEDS: HEPARIN 5,000 UNITS/ML, 1ML SQ SCH ×2 (06:15→18:22)
[2021-04-22 06:27] VITALS: BP 153/90
[2021-04-22] MEDS: INSULIN LISPRO 100 UNITS/ML, PEN SQ-INSULIN SCH ×4 (07:00→21:16)
[2021-04-22] MEDS: SODIUM BICARBONATE 650 MG TABLET PO SCH ×2 (08:16→21:16)
[2021-04-22] MEDS: ENALAPRIL 2.5MG TABLET PO SCH ×2 (08:16→21:16)
[2021-04-22] MEDS: SODIUM CHLORIDE FLUSH 10ML SYR IVF SCH ×2 (08:17→21:16)
[2021-04-22 12:45] VITALS: BP 163/99
[2021-04-22 21:14] VITALS: BP 189/105
[2021-04-22 22:13] VITALS: BP 167/102
[2021-04-23 00:17] VITALS: BP 184/115
[2021-04-23] MEDS: LABETALOL 5MG/ML, 20ML IVPush PRN (00:21)
[2021-04-23 01:10] VITALS: BP_SYST 123; BP_SYST 153; BP_DIAS 62; BP_DIAS 88
[2021-04-23] MEDS: AMPICILLIN/SULBACTAM 3 GM in SODIUM CHLORIDE 0.9% 100 ML IV SCH ×3 (06:09→22:32)
[2021-04-23] MEDS: HEPARIN 5,000 UNITS/ML, 1ML SQ SCH ×2 (06:09→18:30)
[2021-04-23 06:20] VITALS: BP 185/100
[2021-04-23] MEDS: INSULIN LISPRO 100 UNITS/ML, PEN SQ-INSULIN SCH ×4 (07:00→21:08)
[2021-04-23] MEDS: SODIUM BICARBONATE 650 MG TABLET PO SCH ×2 (11:07→21:03)
[2021-04-23] MEDS: ENALAPRIL 2.5MG TABLET PO SCH ×2 (11:07→21:03)
[2021-04-23] MEDS: SODIUM CHLORIDE FLUSH 10ML SYR IVF SCH ×2 (11:09→21:03)
[2021-04-23 12:05] VITALS: BP 150/83
[2021-04-23 12:20] VITALS: BP 192/108
[2021-04-23] MEDS: hydrALAzine 20 MG/ML, 1ML IVPush PRN (12:32)
[2021-04-23 20:58] VITALS: BP 115/86
[2021-04-23 21:24] LABS: CLOSTRIDIUM DIFFICILE ANTIGEN NEGATIVE; CLOSTRIDIUM DIFFICILE TOXIN NEGATIVE (Negative)
[2021-04-24 03:51] VITALS: BP 138/90
[2021-04-24] MEDS: HEPARIN 5,000 UNITS/ML, 1ML SQ SCH ×2 (06:07→18:40)
[2021-04-24] MEDS: AMPICILLIN/SULBACTAM 3 GM in SODIUM CHLORIDE 0.9% 100 ML IV SCH ×3 (06:07→22:08)
[2021-04-24 06:55] VITALS: BP 145/88
[2021-04-24] MEDS: INSULIN LISPRO 100 UNITS/ML, PEN SQ-INSULIN SCH ×4 (07:33→20:08)
[2021-04-24] MEDS: SODIUM BICARBONATE 650 MG TABLET PO SCH ×2 (07:37→20:09)
[2021-04-24] MEDS: ENALAPRIL 2.5MG TABLET PO SCH ×2 (07:37→20:09)
[2021-04-24] MEDS: SODIUM CHLORIDE FLUSH 10ML SYR IVF SCH ×2 (07:38→20:08)
[2021-04-24 07:40] VITALS: BP 142/95
[2021-04-24 13:17] VITALS: BP 164/92
[2021-04-24 18:51] VITALS: BP 169/99
[2021-04-25 01:32] VITALS: BP 149/91
[2021-04-25] MEDS: AMPICILLIN/SULBACTAM 3 GM in SODIUM CHLORIDE 0.9% 100 ML IV SCH ×3 (06:09→22:10)
[2021-04-25] MEDS: HEPARIN 5,000 UNITS/ML, 1ML SQ SCH ×2 (06:09→18:13)
[2021-04-25] MEDS: INSULIN LISPRO 100 UNITS/ML, PEN SQ-INSULIN SCH ×4 (07:00→21:00)
[2021-04-25 07:21] VITALS: BP 151/89
[2021-04-25] MEDS: ENALAPRIL 2.5MG TABLET PO SCH ×2 (09:47→21:18)
[2021-04-25] MEDS: SODIUM BICARBONATE 650 MG TABLET PO SCH ×2 (09:47→21:18)
[2021-04-25] MEDS: SODIUM CHLORIDE FLUSH 10ML SYR IVF SCH ×2 (09:47→21:18)
[2021-04-25 12:43] VITALS: BP 154/95
[2021-04-25 20:07] VITALS: BP 135/87
[2021-04-26 01:13] VITALS: BP 136/86
[2021-04-26 04:57] LABS: BASOPHILS % (AUTO) 1 % (0-1); EOSINOPHILS % (AUTO) 5 % (1-7); LYMPHOCYTES % (AUTO) 40 % (22-44); MEAN CORPUSCULAR HEMOGLOBIN 28.9 pg (27.5-34.5); MEAN PLATELET VOLUME 7.8 fL (7.4-10.4); MONOCYTES % (AUTO) 5 % (2-9); NEUTROPHILS % (AUTO) 48 % (42-75); PLATELET COUNT 376 x10^3/uL (130-400); RED BLOOD COUNT 2.65 x10^6/uL (4.38-5.82); RED CELL DISTRIBUTION WIDTH 19.6 % (9.4-14.8)
[2021-04-26 05:04] LABS: ANION GAP 6 mmol/L (5-15); CALCIUM 8.1 mg/dL (8.5-10.1); CHLORIDE 116 mmol/L (98-107); CREATININE 1.85 mg/dL (0.7-1.3)
[2021-04-26] MEDS: AMPICILLIN/SULBACTAM 3 GM in SODIUM CHLORIDE 0.9% 100 ML IV SCH ×3 (06:27→21:58)
[2021-04-26] MEDS: HEPARIN 5,000 UNITS/ML, 1ML SQ SCH ×2 (06:27→18:33)
[2021-04-26] MEDS: INSULIN LISPRO 100 UNITS/ML, PEN SQ-INSULIN SCH ×4 (07:00→20:39)
[2021-04-26 07:07] VITALS: BP 137/85
[2021-04-26] MEDS ORDERED: SODIUM ZIRCONIUM CYCLOSILICATE 10 GM PO ONE (08:30)
[2021-04-26] MEDS: ENALAPRIL 2.5MG TABLET PO SCH ×2 (10:24→20:42)
[2021-04-26] MEDS: SODIUM BICARBONATE 650 MG TABLET PO SCH ×2 (10:24→20:42)
[2021-04-26] MEDS: SODIUM CHLORIDE FLUSH 10ML SYR IVF SCH ×2 (10:26→20:42)
[2021-04-26] MEDS: hydrALAzine 20 MG/ML, 1ML IVPush PRN (12:20)
[2021-04-26 12:31] VITALS: BP 170/102
[2021-04-26 15:09] LABS: HCT (SEDRATE) 26.8 % (39.2-51.8)
[2021-04-26 19:01] VITALS: BP 165/85
[2021-04-27 00:42] VITALS: BP 142/80
[2021-04-27] MEDS: HEPARIN 5,000 UNITS/ML, 1ML SQ SCH ×2 (05:46→20:36)
[2021-04-27] MEDS: AMPICILLIN/SULBACTAM 3 GM in SODIUM CHLORIDE 0.9% 100 ML IV SCH ×3 (05:46→22:07)
[2021-04-27 06:18] LABS: BASOPHILS % (AUTO) 1 % (0-1); EOSINOPHILS % (AUTO) 5 % (1-7); LYMPHOCYTES % (AUTO) 42 % (22-44); MEAN CORPUSCULAR HEMOGLOBIN 28.9 pg (27.5-34.5); MEAN CORPUSCULAR HGB CONC 33.4 g/dL (33.2-36.2); MEAN PLATELET VOLUME 8.1 fL (7.4-10.4); MONOCYTES % (AUTO) 4 % (2-9); NEUTROPHILS % (AUTO) 47 % (42-75); PLATELET COUNT 337 x10^3/uL (130-400); RED BLOOD COUNT 2.69 x10^6/uL (4.38-5.82); RED CELL DISTRIBUTION WIDTH 19.1 % (9.4-14.8)
[2021-04-27 06:29] LABS: ANION GAP 3 mmol/L (5-15); CHLORIDE 118 mmol/L (98-107)
[2021-04-27 06:34] LABS: ALANINE AMINOTRANSFERASE 13 U/L (12-78); ALKALINE PHOSPHATASE 78 U/L (45-117); BILIRUBIN,TOTAL 0.2 mg/dL (0.2-1.0); TOTAL PROTEIN 6.8 g/dL (6.4-8.2)
[2021-04-27] MEDS: INSULIN LISPRO 100 UNITS/ML, PEN SQ-INSULIN SCH ×4 (06:43→20:28)
[2021-04-27] MEDS ORDERED: SODIUM ZIRCONIUM CYCLOSILICATE 10 GM PO ONE (07:00)
[2021-04-27 07:25] VITALS: BP 151/94
[2021-04-27] MEDS: SODIUM BICARBONATE 650 MG TABLET PO SCH ×2 (09:56→20:36)
[2021-04-27] MEDS: SODIUM CHLORIDE FLUSH 10ML SYR IVF SCH ×2 (09:56→20:36)
[2021-04-27 10:58] LABS: CHLORIDE,URINE RANDOM 128 mmol/L; POTASSIUM,URINE RANDOM 41 mmol/L; SODIUM,URINE RANDOM 105 mmol/L
[2021-04-27 12:30] VITALS: BP 156/92
[2021-04-27] MEDS: SODIUM ZIRCONIUM CYCLOSILICATE 10 GM PO SCH (18:13)
[2021-04-27 19:14] VITALS: BP 142/87
[2021-04-27 20:35] VITALS: BP 177/112
[2021-04-28 01:01] VITALS: BP 143/86
[2021-04-28] MEDS: AMPICILLIN/SULBACTAM 3 GM in SODIUM CHLORIDE 0.9% 100 ML IV SCH ×3 (06:20→22:44)
[2021-04-28] MEDS: SODIUM ZIRCONIUM CYCLOSILICATE 10 GM PO SCH ×2 (06:27→18:02)
[2021-04-28 06:31] LABS: BASOPHILS % (AUTO) 2 % (0-1); EOSINOPHILS % (AUTO) 5 % (1-7); LYMPHOCYTES % (AUTO) 47 % (22-44); MEAN CORPUSCULAR HEMOGLOBIN 28.8 pg (27.5-34.5); MEAN CORPUSCULAR HGB CONC 33.1 g/dL (33.2-36.2); MEAN PLATELET VOLUME 7.5 fL (7.4-10.4); MONOCYTES % (AUTO) 5 % (2-9); NEUTROPHILS % (AUTO) 41 % (42-75); PLATELET COUNT 301 x10^3/uL (130-400); RED BLOOD COUNT 2.64 x10^6/uL (4.38-5.82); RED CELL DISTRIBUTION WIDTH 19.9 % (9.4-14.8)
[2021-04-28 06:37] VITALS: BP 133/82
[2021-04-28 06:44] LABS: ALANINE AMINOTRANSFERASE 14 U/L (12-78); ANION GAP 5 mmol/L (5-15); CALCIUM 8.1 mg/dL (8.5-10.1); CHLORIDE 117 mmol/L (98-107); CREATININE 1.88 mg/dL (0.7-1.3)
[2021-04-28 06:47] LABS: ALKALINE PHOSPHATASE 74 U/L (45-117); BILIRUBIN,TOTAL 0.2 mg/dL (0.2-1.0); TOTAL PROTEIN 6.7 g/dL (6.4-8.2)
[2021-04-28] MEDS: INSULIN LISPRO 100 UNITS/ML, PEN SQ-INSULIN SCH ×4 (07:00→21:00)
[2021-04-28] MEDS: SODIUM CHLORIDE FLUSH 10ML SYR IVF SCH ×2 (09:50→20:47)
[2021-04-28] MEDS: SODIUM BICARBONATE 650 MG TABLET PO SCH ×2 (09:51→20:47)
[2021-04-28] MEDS: HEPARIN 5,000 UNITS/ML, 1ML SQ SCH ×2 (09:51→20:47)
[2021-04-28 12:44] VITALS: BP 129/84
[2021-04-28 20:41] VITALS: BP 174/110
[2021-04-28 22:47] VITALS: BP 135/86
[2021-04-29 02:05] VITALS: BP 140/87
[2021-04-29 05:11] LABS: BASOPHILS % (AUTO) 2 % (0-1); EOSINOPHILS % (AUTO) 6 % (1-7); LYMPHOCYTES % (AUTO) 44 % (22-44); MEAN CORPUSCULAR HEMOGLOBIN 28.5 pg (27.5-34.5); MEAN CORPUSCULAR HGB CONC 32.7 g/dL (33.2-36.2); MEAN PLATELET VOLUME 8.1 fL (7.4-10.4); MONOCYTES % (AUTO) 6 % (2-9); NEUTROPHILS % (AUTO) 41 % (42-75); PLATELET COUNT 276 x10^3/uL (130-400); RED BLOOD COUNT 2.69 x10^6/uL (4.38-5.82); RED CELL DISTRIBUTION WIDTH 19.8 % (9.4-14.8)
[2021-04-29 05:23] LABS: ALANINE AMINOTRANSFERASE 13 U/L (12-78); ALBUMIN 1.9 g/dL (3.4-5.0); ANION GAP 6 mmol/L (5-15); CALCIUM 7.9 mg/dL (8.5-10.1); CHLORIDE 116 mmol/L (98-107)
[2021-04-29 05:25] LABS: ALKALINE PHOSPHATASE 77 U/L (45-117); BILIRUBIN,TOTAL 0.2 mg/dL (0.2-1.0); TOTAL PROTEIN 6.6 g/dL (6.4-8.2)
[2021-04-29] MEDS: AMPICILLIN/SULBACTAM 3 GM in SODIUM CHLORIDE 0.9% 100 ML IV SCH ×3 (05:59→22:02)
[2021-04-29] MEDS: SODIUM ZIRCONIUM CYCLOSILICATE 10 GM PO SCH ×2 (06:02→18:31)
[2021-04-29 06:49] VITALS: BP 163/97
[2021-04-29] MEDS: INSULIN LISPRO 100 UNITS/ML, PEN SQ-INSULIN SCH ×4 (07:00→20:59)
[2021-04-29] MEDS: AMLODIPINE 5 MG TABLET PO SCH (09:19)
[2021-04-29] MEDS: HEPARIN 5,000 UNITS/ML, 1ML SQ SCH ×2 (09:19→20:58)
[2021-04-29] MEDS: SODIUM BICARBONATE 650 MG TABLET PO SCH ×2 (09:20→20:59)
[2021-04-29] MEDS: SODIUM CHLORIDE FLUSH 10ML SYR IVF SCH ×2 (11:17→20:58)
[2021-04-29 12:28] VITALS: BP 160/79
[2021-04-29 19:38] VITALS: BP 150/73
[2021-04-30 00:52] VITALS: BP 136/79
[2021-04-30 05:42] LABS: BASOPHILS % (AUTO) 1 % (0-1); EOSINOPHILS % (AUTO) 7 % (1-7); LYMPHOCYTES % (AUTO) 43 % (22-44); MEAN CORPUSCULAR HEMOGLOBIN 28.5 pg (27.5-34.5); MEAN CORPUSCULAR HGB CONC 32.9 g/dL (33.2-36.2); MEAN PLATELET VOLUME 8.3 fL (7.4-10.4); MONOCYTES % (AUTO) 6 % (2-9); NEUTROPHILS % (AUTO) 43 % (42-75); PLATELET COUNT 262 x10^3/uL (130-400); RED BLOOD COUNT 2.65 x10^6/uL (4.38-5.82); RED CELL DISTRIBUTION WIDTH 19.8 % (9.4-14.8)
[2021-04-30 05:48] LABS: ANION GAP 2 mmol/L (5-15); CALCIUM 7.8 mg/dL (8.5-10.1); CHLORIDE 119 mmol/L (98-107)
[2021-04-30 05:50] LABS: ALANINE AMINOTRANSFERASE 16 U/L (12-78); ALKALINE PHOSPHATASE 76 U/L (45-117); BILIRUBIN,TOTAL 0.2 mg/dL (0.2-1.0); CREATININE 2.37 mg/dL (0.7-1.3); TOTAL PROTEIN 6.7 g/dL (6.4-8.2)
[2021-04-30] MEDS: AMPICILLIN/SULBACTAM 3 GM in SODIUM CHLORIDE 0.9% 100 ML IV SCH ×3 (05:51→22:14)
[2021-04-30] MEDS: SODIUM ZIRCONIUM CYCLOSILICATE 10 GM PO SCH (05:55)
[2021-04-30] MEDS: INSULIN LISPRO 100 UNITS/ML, PEN SQ-INSULIN SCH ×4 (07:00→21:00)
[2021-04-30] MEDS: HEPARIN 5,000 UNITS/ML, 1ML SQ SCH ×2 (08:10→21:00)
[2021-04-30] MEDS: SODIUM BICARBONATE 650 MG TABLET PO SCH ×2 (08:10→21:00)
[2021-04-30] MEDS: AMLODIPINE 5 MG TABLET PO SCH (08:10)
[2021-04-30 08:11] VITALS: BP 162/100
[2021-04-30] MEDS: SODIUM CHLORIDE FLUSH 10ML SYR IVF SCH ×2 (11:14→21:00)
[2021-04-30 14:51] VITALS: BP 162/99
[2021-04-30 18:45] LABS: MICROSCOPIC AUTO
[2021-04-30 20:39] VITALS: BP 207/129
[2021-04-30] MEDS: LABETALOL 5MG/ML, 20ML IVPush PRN (21:01)
[2021-04-30 21:41] LABS: CREATININE,URINE RANDOM 43.6 mg/dL
[2021-04-30 22:14] VITALS: BP 169/98
[2021-05-01] VITALS (7 sets, daily range): BP systolic 141–202; BP diastolic 98–122
[2021-05-01] MEDS: LABETALOL 5MG/ML, 20ML IVPush PRN (02:16)
[2021-05-01 04:32] LABS: BASOPHILS % (AUTO) 2 % (0-1); EOSINOPHILS % (AUTO) 5 % (1-7); LYMPHOCYTES % (AUTO) 30 % (22-44); MEAN CORPUSCULAR HEMOGLOBIN 28.2 pg (27.5-34.5); MEAN CORPUSCULAR HGB CONC 32.5 g/dL (33.2-36.2); MEAN PLATELET VOLUME 8.6 fL (7.4-10.4); MONOCYTES % (AUTO) 5 % (2-9); NEUTROPHILS % (AUTO) 58 % (42-75); PLATELET COUNT 263 x10^3/uL (130-400); RED BLOOD COUNT 3.05 x10^6/uL (4.38-5.82); RED CELL DISTRIBUTION WIDTH 19.7 % (9.4-14.8)
[2021-05-01 04:47] LABS: ALANINE AMINOTRANSFERASE 17 U/L (12-78); ALBUMIN 2.2 g/dL (3.4-5.0); ANION GAP 7 mmol/L (5-15); CHLORIDE 114 mmol/L (98-107)
[2021-05-01 04:49] LABS: ALKALINE PHOSPHATASE 83 U/L (45-117); BILIRUBIN,TOTAL 0.2 mg/dL (0.2-1.0); TOTAL PROTEIN 7.2 g/dL (6.4-8.2)
[2021-05-01] MEDS: AMPICILLIN/SULBACTAM 3 GM in SODIUM CHLORIDE 0.9% 100 ML IV SCH ×2 (05:52→13:26)
[2021-05-01] MEDS: INSULIN LISPRO 100 UNITS/ML, PEN SQ-INSULIN SCH ×3 (07:00→16:00)
[2021-05-01] MEDS: SODIUM BICARBONATE 650 MG TABLET PO SCH (07:26)
[2021-05-01] MEDS: AMLODIPINE 5 MG TABLET PO SCH (07:26)
[2021-05-01] MEDS ORDERED: SODIUM ZIRCONIUM CYCLOSILICATE 10 GM PO SCH (09:00)
[2021-05-01] MEDS: HEPARIN 5,000 UNITS/ML, 1ML SQ SCH (09:01)
[2021-05-01] MEDS ORDERED: TORSEMIDE 20 MG TABLET PO SCH (10:00)
[2021-05-01] MEDS ORDERED: CARVEDILOL 6.25 MG TABLET PO SCH (11:00)
[2021-05-01] MEDS: SODIUM CHLORIDE FLUSH 10ML SYR IVF SCH (11:08)
[2021-05-01] MEDS ORDERED: AMLO-150 PO (13:50)
[2021-05-01] MEDS ORDERED: CARV6.2512 PO (13:50)
[2021-05-01] MEDS ORDERED: METF850T10 PO (13:50)
[2021-05-01] MEDS ORDERED: HYDR-3343 PO (13:50)
[2021-05-01] MEDS ORDERED: INSU100I28 SQ (13:50)
[2021-05-01] MEDS ORDERED: TORS20TA2 PO (13:50)
[2021-05-01] MEDS ORDERED: SODI650T PO (13:50)
[2021-05-01] MEDS ORDERED: METR500T PO (15:34)
[2021-05-01] MEDS ORDERED: CARVEDILOL 3.125 MG TABLET PO SCH (18:00)
[2021-05-02] MEDS ORDERED: AMLODIPINE 5 MG TABLET PO SCH (09:00)
== END 2021-05-01 16:35 | disposition home or self-care (01) | DRG 853 ==
LOC: ED 14:46 → EDIP 17:31 → 3N 18:28
PROVIDERS: ADMIT Internal Medicine; ATTEND Hospitalist
PROC: 0Y9J0ZZ Drainage of Left Lower Leg, Open Approach (ICD-10-PCS; 2021-04-13)
PROC: 0Y6J0Z1 Detachment at Left Lower Leg, High, Open Approach (ICD-10-PCS; principal; 2021-04-17)
PROC: 02HV33Z Insertion of Infusion Device into Superior Vena Cava, Percutaneous Approach (ICD-10-PCS; 2021-04-21)
PROC: B5181ZA Fluoroscopy of Superior Vena Cava using Low Osmolar Contrast, Guidance (ICD-10-PCS; 2021-04-21)
PROC: B548ZZA Ultrasonography of Superior Vena Cava, Guidance (ICD-10-PCS; 2021-04-21)
DX: A41.9 Sepsis, unspecified organism (principal); E43 Unspecified severe protein-calorie malnutrition; T87.44 Infection of amputation stump, left lower extremity; L02.416 Cutaneous abscess of left lower limb; N17.9 Acute kidney failure, unspecified; M86.8X6 Other osteomyelitis, lower leg; Z20.822 Contact with and (suspected) exposure to COVID-19; Y83.5 Amputation of limb(s) as the cause of abnormal reaction of the patient, or of later complication, without mention of misadventure at the time of the procedure; E11.22 Type 2 diabetes mellitus with diabetic chronic kidney disease; I12.9 Hypertensive chronic kidney disease with stage 1 through stage 4 chronic kidney disease, or unspecified chronic kidney disease; N18.9 Chronic kidney disease, unspecified; D64.9 Anemia, unspecified; E11.65 Type 2 diabetes mellitus with hyperglycemia; N40.0 Benign prostatic hyperplasia without lower urinary tract symptoms; E87.5 Hyperkalemia; E11.69 Type 2 diabetes mellitus with other specified complication; E87.8 Other disorders of electrolyte and fluid balance, not elsewhere classified; Z68.26 Body mass index [BMI] 26.0-26.9, adult; Z89.512 Acquired absence of left leg below knee; Z79.899 Other long term (current) drug therapy; Z79.4 Long term (current) use of insulin
CPT/HCPCS: 36415; 36573; 76770; 80048; 80053; 80069; 80202; 81001; 82436; 82570; 82962; 83036; 83605; 83735; 83970; 84100; 84133; 84156; 84166; 84300; 85025; 85651; 86140; 87015; 87040; 87070; 87075; 87076; 87077; 87102; 87116; 87147; 87176; 87186; 87205; 87206; 87324; 87635; 96361; 96374; 96375; G0378; J0295; J0690; J0878; J1100; J1335; J1644; J2250; J2405; J2543; J2704; J2710; J3010; J3370; Q0162; A9575; C1751; J0330; J0360; J1815; J2270; J7030; J7050